=== PATIENT | female | born 1990 | race Caucasian/White ===

== ENCOUNTER → 2019-11-20 10:55 | Outpatient (BNVA) | payer OTHER, SELFPAY | PROVIDERS: PCP Internal Medicine; Visit Provider Orthopaedic Surgery | DX: S83.241D Other tear of medial meniscus, current injury, right knee, subsequent encounter (principal) | CPT/HCPCS: 99214 ==

== ENCOUNTER 2019-11-22 06:33 | Day surgery (SDC) | payer OTHER, SELFPAY ==
[2019-11-20 19:47] VITALS: BMI 24.0
--- NOTE | 2019-11-21 12:10 | P.CONAN_ITS ---
Documented by User: Kelley Kirby 11/21/19 12:12 HPI - Anesthesia Eval Consult details Narrative: 29yo F for R knee arthroscopy s/p R knee scope 09/2018 with GA-LMA 4 PMFSH Past Medical History Medical History Asthma History of disruption of medial collateral ligament History of renal calculi Hypercalciuria Hypocitraturia Melanoma in situ Osteoarthritis of right knee Family History Family History Mother No problems noted. Father No problems noted. Son No problems noted. Sister No problems noted. Brother No problems noted. 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 Meds Allergies Allergy/AdvReac Type Severity Reaction Status Date / Time sulfamethoxazole Allergy Intermediate HIVES Verified 11/20/19 10:58 [From Bactrim] trimethoprim [From Bactrim] Allergy Intermediate HIVES Verified 11/20/19 10:58 Sulfa (Sulfonamide Allergy Unknown hives Verified 11/20/19 10:58 Antibiotics) Home Medications Medication Instructions Recorded Confirmed Type norethindrone (contraceptive) 0.35 0.35 mg PO DAILY 11/07/19 11/22/19 History mg tablet tramadol 50 mg tablet 50 mg PO Q6H PRN 11/07/19 11/20/19 History zolpidem 10 mg tablet 10 mg PO BEDTIME PRN 11/07/19 11/20/19 History lorazepam 0.5 mg tablet 0.5 mg PO BEDTIME PRN 11/20/19 11/20/19 History Exam Exam Date and Time: November 21, 2019 1210 Height,Weight and Vital Signs: Height 5 ft 4 in Weight 63.503 kg Assessment and Plan Assessment Anesthesia Assessment: Chart Reviewed Documented by User: Maci Isaacs 11/22/19 08:14 [facility] Past Medical History Medical History Asthma History of disruption of medial collateral ligament History of renal calculi Hypercalciuria Hypocitraturia Melanoma in situ Osteoarthritis of right knee Family History Family History Mother No problems noted. Father No problems noted. Son No problems noted. Sister No problems noted. Brother No problems noted. 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 Meds Allergies Allergy/AdvReac Type Severity Reaction Status Date / Time sulfamethoxazole Allergy Intermediate HIVES Verified 11/20/19 10:58 [From Bactrim] trimethoprim [From Bactrim] Allergy Intermediate HIVES Verified 11/20/19 10:58 Sulfa (Sulfonamide Allergy Unknown hives Verified 11/20/19 10:58 Antibiotics) Home Medications Medication Instructions Recorded Confirmed Type norethindrone (contraceptive) 0.35 0.35 mg PO DAILY 11/07/19 11/22/19 History mg tablet tramadol 50 mg tablet 50 mg PO Q6H PRN 11/07/19 11/20/19 History zolpidem 10 mg tablet 10 mg PO BEDTIME PRN 11/07/19 11/20/19 History lorazepam 0.5 mg tablet 0.5 mg PO BEDTIME PRN 11/20/19 11/20/19 History Exam Height,Weight and Vital Signs: Vital Signs Temp Pulse Resp BP Pulse Ox 11/22/19 07:24 98.7 F 61 20 109/76 100 Airway Mallampati Class: I TM Dist: >3cm Neck ROM: Full Loose/Missing/Broken Teeth: No Heart: RRR Lungs: CTAB Assessment and Plan Assessment Anesthesia Assessment: Anesthesia Plan Discussed and Chart Reviewed Final Anesthetic Review NPO: Yes (Sip of water with meds 6am) ASA Class: II Final Preanesthetic Review: No Changes in Pt Med Stat, Meds/Allgs Chart Reviewed, Consent Obtained/Reviewed and Anes Risks/Benef Reviewed Patient Risk: Low Procedure Risk: Low Anesthetic Plan Anesthetic Plan: GA Disposition: Standard PACU
[2019-11-22 07:05] LABS: UPreg QC Valid YES
--- NOTE | 2019-11-22 07:06 | MHC.SHP ---
Pre-Procedural Eval Section A The patient is an INPATIENT: No Changes since office visit: No Cold of Flu in the past 2 weeks, No New Medical Problems, No Changes in Medication and No Patient answered all questions The History & Physical has been completed within 30 days and I have reviewed it.: Yes Section B Chief Complaint: medial meniscus tear with arthritis Allergies: Allergies Allergy/AdvReac Type Severity Reaction Status Date / Time sulfamethoxazole Allergy Intermediate HIVES Verified 11/20/19 10:58 [From Bactrim] trimethoprim [From Bactrim] Allergy Intermediate HIVES Verified 11/20/19 10:58 Sulfa (Sulfonamide Allergy Unknown hives Verified 11/20/19 10:58 Antibiotics) Plan Patient has been examined and remains a candidate for the planned procedure
[2019-11-22 07:08] LABS: Urine Pregnancy NEGATIVE (NEGATIVE)
[2019-11-22 07:24] VITALS: BP 109/76; PULSE 61; RESP 20; TEMP 37.1; O2SAT 100
[2019-11-22] MEDS: Lactated Ringers 1,000 ML 100 ML IVCONT (07:40)
[2019-11-22 09:20] VITALS: BP 95/52; PULSE 56; RESP 12; TEMP 36.2; O2SAT 100
[2019-11-22 09:25] VITALS: BP 93/53; PULSE 69; RESP 16; O2SAT 97
[2019-11-22 09:30] VITALS: BP 101/65; PULSE 80; RESP 18; O2SAT 100
[2019-11-22 09:35] VITALS: BP 109/63; PULSE 68; RESP 18; O2SAT 99
--- NOTE | 2019-11-22 09:36 | PM.PRCOR ---
Brief Operative Note Date of procedure: 11/22/19 Pre-op diagnosis: medial lateral meniscal tear with osteoarthritis right knee Post-op diagnosis: other ( lateral meniscal tear with osteoarthritis lateral compartment right knee) Procedure: arthroscopic surgery right knee with partial lateral meniscectomy and debridement lateral compartment right knee Anesthesia: GLMA Surgeon: Landry Salinas Estimated blood loss (mL): 0 Pathology: none sent Condition: stable Disposition: PACU
[2019-11-22 09:53] VITALS: BP 110/63; PULSE 54; RESP 18; TEMP 36.1; O2SAT 98
--- NOTE | 2019-11-22 10:09 | HO.POSTANES ---
Post Anesthesia Evaluation Post Anesthesia Evaluation Vital Signs: Vital Signs Temp Pulse Resp BP Pulse Ox 11/22/19 09:53 97 F 54 18 110/63 98 11/22/19 09:35 68 18 109/63 99 11/22/19 09:30 80 18 101/65 100 11/22/19 09:25 69 16 93/53 L 97 11/22/19 09:20 97.2 F 56 12 95/52 L 100 11/22/19 07:24 98.7 F 61 20 109/76 100 Anesthesia: General LMA Mental Status: Awake Pain Control: Satisfactory Nausea/Vomiting: None Hydration: Adequate Anesthesia-Related Issues: No Anes. Related Issues
--- NOTE | 2019-11-26 11:52 | OP_ITS ---
SURGEON: Landry Salinas MD PREOPERATIVE DIAGNOSIS: Medial and partial lateral meniscal tear with osteoarthritis, right knee. POSTOPERATIVE DIAGNOSIS: PROCEDURE PERFORMED: 1. Partial lateral meniscectomy, right knee. 2. Debridement of lateral compartment, right knee. ESTIMATED BLOOD LOSS: COMPLICATIONS: ANESTHESIA: ASSISTANTS: SPECIMENS: POSTOPERATIVE DIAGNOSES: 1. Lateral meniscal tear, right knee. 2. Osteoarthritis, lateral compartment, right knee. CLINICAL NOTE: This lady has ongoing problems with pain and discomfort involving her knee and has had multiple surgeries of the knee and she has returned with acute pain and difficulty doing activities. She had failed nonoperative management. Therefore, after explaining the risks, benefits, and alternatives and answering all her questions, it was mutually agreed upon to carry out the following procedure. MOTION: Full range of motion. STABILITY: Cruciate and collateral ligaments intact. DESCRIPTION OF PROCEDURE: PREPARATION: GA, standard technique, tourniquet to 300 mmHg for 12 minutes. SURGICAL TIME-OUT: The patient was identified, procedure confirmed, site confirmed. Medical analogy and history were reviewed. No preoperative antibiotics. No DVT prophylaxis. All other items were discussed and agreed upon. INCISIONS: Superolateral, inferolateral, inferomedial, stab incisions. SYNOVIUM: Normal. SYNOVIAL FLUID: Clear. MEDIAL COMPARTMENT: The medial meniscus tibial and femoral articular surfaces was stable and intact. INTERCONDYLAR NOTCH: ACL from previous resection still intact. PCL intact. LATERAL COMPARTMENT: There were some complex degenerative tearing of the junction of the posterior horn and middle horn of the lateral meniscus were resected using handheld cutters and power shaver. The area of [id number] lateral compartment osteoarthritis of the tibial surface was increased from previously with loose articular cartilage, which was debrided. The small area of grade 3 injury to the weightbearing surface of the lateral femoral condyle, popliteus tendon intact. ANTERIOR COMPARTMENT: There was grade 3 injury of the femoral sulcus. Grade 2 softening of the patella. CLOSURE: 30 mL of a combination of 0.75% Marcaine with epinephrine mixed half and half with normal saline was injected into knee. Steri-Strips and sterile dressing were then applied. RECOMMENDATIONS: 1. Restore motion strength. 2. Resume activity as tolerated. 3. Discharge today with prescription for Tylenol No. 3, 20 tablets. 4. Follow up in the office in 10 days' time. MD GIANLUCA GarzaI/CATHERINE / [id number]
== END 2019-11-22 10:14 | disposition home or self-care (01) ==
PROVIDERS: Nurse Practitioner; PCP Internal Medicine; Visit Provider Orthopaedic Surgery
PROC: (CPT 29870; principal; 2019-11-22 08:20)
DX: S83.271A Complex tear of lateral meniscus, current injury, right knee, initial encounter (principal); M17.11 Unilateral primary osteoarthritis, right knee; X58.XXXA Exposure to other specified factors, initial encounter; Y93.9 Activity, unspecified; Y92.9 Unspecified place or not applicable; Y99.8 Other external cause status; J45.909 Unspecified asthma, uncomplicated; R82.994 Hypercalciuria; R82.991 Hypocitraturia; Z79.899 Other long term (current) drug therapy; Z88.2 Allergy status to sulfonamides; Z86.006 Personal history of melanoma in-situ
CPT/HCPCS: 29881; 81025; J0171; J1100; J1885; J2250; J2405; J3010

== ENCOUNTER → 2019-12-04 13:14 | Outpatient (BNVA) | payer OTHER, SELFPAY | PROVIDERS: Visit Provider Physician Assistant | DX: S83.281A Other tear of lateral meniscus, current injury, right knee, initial encounter (principal); M17.11 Unilateral primary osteoarthritis, right knee | CPT/HCPCS: 29880; 99212 ==

== ENCOUNTER 2020-09-01 19:19 | Outpatient (REF) | payer OTHER, SELFPAY ==
--- NOTE | ~2020-09-01 | MR_ITS ---
EXAMINATION: MRI ANKLE WITHOUT CONTRAST, RIGHT CLINICAL INFORMATION: Lateral ankle pain and swelling following a twisting injury. COMPARISON: None TECHNIQUE: Multisequential MR imaging of the right ankle was obtained without contrast on a high-field strength scanner. FINDINGS: BONE AND ARTICULAR CARTILAGE: Prominent focal marrow edema within the posterior aspect of the lateral tibial plafond, consistent with an osseous contusion. Additional marrow edema along the posterior aspect of the medial malleolus, consistent with an osseous contusion. No associated fracture line. No dislocation. The ankle mortise is maintained. Intact articular cartilage. No talar osteochondral lesion. ACHILLES TENDON: Normal. OTHER TENDONS: Prominent fluid within the posterior tibialis tendon sheath, consistent with tenosynovitis. No measurable tendon defect. LIGAMENTS: Increased signal and attenuation of the posterior tibiofibular ligament, consistent with a mild sprain/partial tear. Absence of the anterior talofibular ligament, consistent with a complete tear. Adjacent soft tissue edema. Edema throughout the deltoid ligament, consistent with a sprain/partial tear. JOINT FLUID AND SOFT TISSUES: Moderate tibiotalar and small posterior subtalar joint effusions. Lateral subcutaneous edema. More mild medial subcutaneous edema. PLANTAR FASCIA: Normal. SINUS TARSI AND TARSAL TUNNEL: Normal. MR/MR ankle RT wo con IMPRESSION: 1. Complete tear of the anterior talofibular ligament. More mild sprain/partial tears of the posterior tibiofibular ligament and deltoid ligament. 2. Osseous contusions at the posterior aspect of the lateral tibial plafond as well as at the posterior aspect of the medial malleolus. No associated fracture line. 3. Moderate tibiotalar and small posterior subtalar joint effusions. Medial and lateral subcutaneous edema. 4. Prominent posterior tibialis tenosynovitis without a measurable tendon defect.
== END 2020-09-01 19:20 | disposition home or self-care (01) ==
LOC: HO.MRI 19:19
PROVIDERS: PCP Internal Medicine; Visit Provider Physician Assistant
DX: S99.911A Unspecified injury of right ankle, initial encounter (principal)
CPT/HCPCS: 73721

== ENCOUNTER 2020-09-17 08:32 | Outpatient (REF) | payer OTHER, SELFPAY ==
--- NOTE | ~2020-09-17 | XR_ITS ---
EXAMINATION: XR ANKLE, RIGHT CLINICAL INFORMATION: Right ankle pain. COMPARISON: None TECHNIQUE: AP, lateral, and mortise views of the right ankle. FINDINGS: There is mild right lateral ankle soft tissue swelling. The ankle mortise and subtalar joints are normal. No visible acute fracture, dislocation or lytic process seen. XR/XR ankle RT min 3V IMPRESSION: Mild lateral malleolar soft tissue swelling. No visible acute fracture or dislocation seen.
== END 2020-09-17 08:33 | disposition home or self-care (01) ==
LOC: HO.HOSX 08:32
PROVIDERS: Visit Provider Orthopaedic Surgery
DX: S93.491D Sprain of other ligament of right ankle, subsequent encounter (principal)
CPT/HCPCS: 73610

== ENCOUNTER 2020-10-09 14:08 | Outpatient (REF) | payer OTHER, SELFPAY ==
[2020-10-09 14:52] LABS: Influenza A PCR NEGATIVE (Negative); Influenza B PCR NEGATIVE (Negative); Resp Syncy Virus RNA Qual PCR NEGATIVE (Negative); SARS COV2 PCR INHOUSE POSITIVE (Negative)
== END 2020-10-09 14:09 | disposition home or self-care (01) ==
LOC: HO.LNP 14:08
PROVIDERS: Visit Provider Family Medicine
DX: Z20.822 Contact with and (suspected) exposure to COVID-19 (principal); B34.9 Viral infection, unspecified
CPT/HCPCS: 0241U

== ENCOUNTER 2020-10-24 14:43 | Outpatient (REF) | payer OTHER, SELFPAY ==
--- NOTE | ~2020-10-24 | XR_ITS ---
EXAMINATION: XR CHEST CLINICAL INFORMATION: Cough. COMPARISON: Most recent CTA chest dated 10/14/2016. Concurrent CTA chest. TECHNIQUE: 2 views of the chest were obtained. FINDINGS: The lungs are clear. The cardiomediastinal silhouette is normal in size. There is no pleural effusion or pneumothorax. No acute osseous abnormality. XR/XR chest 2V IMPRESSION: No acute cardiopulmonary findings.
[2020-10-24 15:08] LABS: D Dimer 938 NG/ML
== END 2020-10-24 14:44 | disposition home or self-care (01) ==
LOC: HO.LAB 14:43
PROVIDERS: PCP Internal Medicine; Visit Provider Physician Assistant
DX: R05 Cough (principal); R06.00 Dyspnea, unspecified
CPT/HCPCS: 36415; 71046; 85379

== ENCOUNTER 2020-10-24 17:00 | Emergency (ER) | payer OTHER, SELFPAY ==
--- NOTE | ~2020-10-24 | CT_ITS ---
EXAMINATION: CT ANGIOGRAM OF THE CHEST WITH AND WITHOUT CONTRAST (CT PULMONARY ANGIOGRAM FOR PE) CLINICAL INFORMATION: elevated d dimer, hx of Covid and sob COMPARISON: Chest x-ray October 24, 2020. CT angiography chest October 14, 2016 TECHNIQUE: Prior to contrast administration, noncontrast localization images were obtained. Subsequently, multidetector volumetric imaging was performed from the thoracic inlet to below the diaphragms following the administration of 75 mL Omnipaque 350 intravenous contrast. No contrast reaction reported Sagittal, coronal, and MIP oblique sagittal reformatted images were obtained on the CT workstation, uploaded to PACS, and reviewed. This CT examination was performed using dose optimization techniques as appropriate, variously including the following: *Automated exposure control *Adjustment of mA and/or kV according to patient size (this includes techniques or standardized protocols for targeted exams where dose is matched to indication/reason for exam; i.e. extremities or head) *Use of iterative reconstruction technique Total exam dose-length product 242 mGy-cm FINDINGS: QUALITY OF STUDY/CONTRAST BOLUS: Satisfactory. PULMONARY ARTERIES: No central or segmental pulmonary emboli. THORACIC AORTA: No aneurysm or dissection. LUNG: No focal consolidation, nodules or masses. PLEURA: No pleural effusion or pneumothorax. MEDIASTINUM: Normal heart size. No pericardial effusion. No hilar or mediastinal lymphadenopathy. No evidence of septal bowing or right heart strain. CHEST WALL/AXILLA: No axillary or internal mammary lymphadenopathy. OSSEOUS STRUCTURES: No acute or suspicious osseous abnormality. UPPER ABDOMEN: Unremarkable. No reflux of contrast into the hepatic veins to suggest elevated right heart pressures. CT/CT angio chest PE protocol IMPRESSION: Normal CT of chest. No evidence of pulmonary embolism. VTE: negative
[2020-10-24 18:45] VITALS: BP 126/78; PULSE 75; RESP 18; TEMP 36.4; O2SAT 100; BMI 24.0
[2020-10-24 20:29] LABS: MANUAL DIFF FLAG NO
[2020-10-24 20:32] LABS: UPreg QC Valid YES; Urine Pregnancy NEGATIVE (NEGATIVE)
[2020-10-24 20:33] LABS: Basophils Percent Auto 0.5 % (0-2); Eosinophils Absolute Auto 0.1 X10*3/uL (0.0-0.4); Hematocrit 36.5 % (37-47); Hemoglobin 12.6 g/dl (12.0-16.0); Imm Gran Abs Auto 0.01 X10*3/uL (0.00-0.03); Imm Gran Pct Auto 0.2 % (0.0-0.4); Lymphocytes Absolute Auto 1.7 X10*3/uL (1.2-4.9); Lymphocytes Percent Auto 28.1 % (20-40); Mean Corpuscular HGB Conc 34.5 g/dl (31.0-35.0); Mean Corpuscular Hemoglobin 32.5 pg (27.0-33.0); Mean Corpuscular Volume 94.1 fL (80-98); Monocytes Absolute Auto 0.6 X10*3/uL (0.1-1.2); Monocytes Percent Auto 9.3 % (2-11); Neutrophils Absolute Auto 3.7 X10*3/uL (2.0-8.3); Neutrophils Percent Auto 60.9 % (45-73); Platelet Count 211 X10*3/uL (160-400); Red Blood Count 3.88 X10*6/uL (4.20-5.50); Red Cell Distribution Width 11.7 % (11.0-16.0)
[2020-10-24 20:43] LABS: COVID-19 Test Negative (Negative)
[2020-10-24 20:50] LABS: Anion Gap 13 (12-20); Blood Urea Nitrogen 11 mg/dL (9-16); Calcium 9.7 mg/dL (8.4-10.2); Carbon Dioxide 25 mmol/L (22-29); Chloride 106 mmol/L (96-108); Estimated Glomerular Filt Rate > 60; Glucose Random 118 mg/dL (60-115); Potassium 3.9 mmol/L (3.3-5.1); Sodium 140 mmol/L (135-145)
[2020-10-24] MEDS: iohexoL 350 MG/ML 100 ML INFUS..BTL IV (21:13)
--- NOTE | 2020-10-24 21:56 | ED.RECABL ---
HPI - Recheck/Abnormal Lab/Rx General Chief Complaint: Recheck/Abnormal Lab/Rx Stated Complaint: abnormal labs Time Seen by Provider: 10/24/20 17:18 Source: patient Mode of arrival: ambulatory Limitations: no limitations History of Present Illness HPI narrative: Patient is a 30-year-old female with a past medical history of asthma and taking OCPs who tested positive for COVID on October 08 and is still symptomatic today. She states she feels shaky, like an elephant is sitting on her chest, she feels short of breath and has a dry cough. She went to her doctor's today and they tested her D-dimer which was elevated at 930 H so she was told to come to the emergency department for a CTA. She states she is fully vaccinated with during a COVID vaccination with her 2nd shot being on 04/02/2020. She denies any fevers, nausea, vomiting or diarrhea. Related Data Home Medications Medication Instructions Recorded Confirmed norethindrone (contraceptive) 0.35 0.35 mg PO DAILY 11/07/19 11/22/19 mg tablet tramadol 50 mg tablet 50 mg PO Q6H PRN 11/07/19 11/20/19 zolpidem 10 mg tablet (Ambien) 10 mg PO BEDTIME PRN 11/07/19 11/20/19 lorazepam 0.5 mg tablet 0.5 mg PO BEDTIME PRN 11/20/19 11/20/19 Previous Rx's Medication Instructions Recorded prednisone 50 mg tablet 50 mg PO DAILY #5 tab 10/24/20 Allergies Allergy/AdvReac Type Severity Reaction Status Date / Time adhesive Allergy Intermediate blisters Verified 10/09/20 10:21 sulfamethoxazole Allergy Intermediate HIVES Verified 09/17/20 09:42 [From Bactrim] Review of Systems Review of Systems: Yes all other systems are reviewed and are negative [facility] Past Medical History Medical History Asthma History of disruption of medial collateral ligament History of renal calculi Hypercalciuria Hypocitraturia Melanoma in situ Osteoarthritis of right knee Surgical History History of arthroscopy of right knee History of cystoscopy History of repair of ACL Family History Family History Mother No problems noted. Father No problems noted. Son No problems noted. Sister No problems noted. Brother No problems noted. 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 Physical Exam Vital Signs: Vital Signs: Last Vital Signs Temp 98.3 F 10/24/20 22:00 Pulse 69 10/24/20 22:00 Resp 18 10/24/20 22:00 BP 110/70 10/24/20 22:00 Pulse Ox 97 10/24/20 22:00 Body Mass Index 24.0 Const: General: cooperative, healthy appearing, comfortable, no acute distress and well developed Orientation/consciousness: patient oriented x3 Limitations: no limitations HENMT: Head: Yes normal to inspection Eyes: General: appearance normal, both eyes and all related structures Neck: Neck: Yes normal visual inspection and Yes full ROM Resp: Effort & Inspection: normal respiratory effort and able to speak in complete sentences Auscultation: clear to auscultation bilaterally Cardio: Rate: regular rate Rhythm: regular rhythm Heart sounds: normal S1 and S2 Skin: General skin exam: no rashes or lesions noted Neuro: General: patient oriented x3 Extrem: General: Yes normal to inspection Course Course Course Narrative: Patient is a 30-year-old female with a past medical history of asthma and taking OCPs who tested positive for COVID on October 08 and is still symptomatic today. Patient had elevated D-dimer so her doctor told to come to the emergency department for CT scan. Vital signs are stable, patient is well-appearing, physical exam is unremarkable. Will get labs and CTA. Reevaluation(s) Reevaluation #1: Labs are all within normal limits, patient is COVID negative today and CTA is negative for clot. Will discharge. MDM - Recheck/Abnormal Lab/Rx Lab Data Result diagrams: 10/24/20 20:22 10/24/20 20:22 Labs: Lab Results 10/24/20 10/24/20 10/24/20 Range/Units 20:17 20:17 20:22 WBC 6.0 (4.8-10.8) X10*3/uL RBC 3.88 L (4.20-5.50) X10*6/uL Hgb 12.6 (12.0-16.0) g/dl Hct 36.5 L (37-47) % MCV 94.1 (80-98) fL MCH 32.5 (27.0-33.0) pg MCHC 34.5 (31.0-35.0) g/dl RDW 11.7 (11.0-16.0) % Plt Count 211 (160-400) X10*3/uL MPV 10.0 (9.4-12.3) fL Immature Gran % (Auto) 0.2 (0.0-0.4) % Neut % (Auto) 60.9 (45-73) % Lymph % (Auto) 28.1 (20-40) % [place] % (Auto) 9.3 (2-11) % Eos % (Auto) 1.0 (0-4) % Baso % (Auto) 0.5 (0-2) % Lymph # (Auto) 1.7 (1.2-4.9) X10*3/uL [place] # (Auto) 0.6 (0.1-1.2) X10*3/uL Eos # (Auto) 0.1 (0.0-0.4) X10*3/uL Baso # (Auto) 0.0 (0.0-0.2) X10*3/uL Abs Immat Gran (auto) 0.01 (0.00-0.03) X10*3/uL Absolute Neuts (auto) 3.7 (2.0-8.3) X10*3/uL Absolute Nucleated RBC 0.000 (0.0-0.012) X10*3/uL Nucleated RBC % (auto) 0.0 (0.0-0.2) /100WBC Sodium (135-145) mmol/L Potassium (3.3-5.1) mmol/L Chloride (96-108) mmol/L Carbon Dioxide (22-29) mmol/L Anion Gap (12-20) BUN (9-16) mg/dL Creatinine (0.5-1.4) mg/dL Estim Creat Clear Calc Estimated GFR Random Glucose (60-115) mg/dL Calcium (8.4-10.2) mg/dL Urine Test NEGATIVE (NEGATIVE) COVID-19 (MICHAEL) Negative (Negative) COVID-19 Clin Com See Note 10/24/20 Range/Units 20:22 WBC (4.8-10.8) X10*3/uL RBC (4.20-5.50) X10*6/uL Hgb (12.0-16.0) g/dl Hct (37-47) % MCV (80-98) fL MCH (27.0-33.0) pg MCHC (31.0-35.0) g/dl RDW (11.0-16.0) % Plt Count (160-400) X10*3/uL MPV (9.4-12.3) fL Immature Gran % (Auto) (0.0-0.4) % Neut % (Auto) (45-73) % Lymph % (Auto) (20-40) % [place] % (Auto) (2-11) % Eos % (Auto) (0-4) % Baso % (Auto) (0-2) % Lymph # (Auto) (1.2-4.9) X10*3/uL [place] # (Auto) (0.1-1.2) X10*3/uL Eos # (Auto) (0.0-0.4) X10*3/uL Baso # (Auto) (0.0-0.2) X10*3/uL Abs Immat Gran (auto) (0.00-0.03) X10*3/uL Absolute Neuts (auto) (2.0-8.3) X10*3/uL Absolute Nucleated RBC (0.0-0.012) X10*3/uL Nucleated RBC % (auto) (0.0-0.2) /100WBC Sodium 140 (135-145) mmol/L Potassium 3.9 (3.3-5.1) mmol/L Chloride 106 (96-108) mmol/L Carbon Dioxide 25 (22-29) mmol/L Anion Gap 13 (12-20) BUN 11 (9-16) mg/dL Creatinine 0.84 (0.5-1.4) mg/dL Estim Creat Clear Calc 83.0 Estimated GFR > 60 Random Glucose 118 H (60-115) mg/dL Calcium 9.7 (8.4-10.2) mg/dL Urine Test (NEGATIVE) COVID-19 (MICHAEL) (Negative) COVID-19 Clin Com Discharge Plan Discharge Clinical Impression: COVID-19 Patient Disposition: Home, Self-Care Instructions: COVID-19 (Coronavirus Disease 2019) (ED) Additional Instructions: Please continue symptomatic care at home. I will give you prescription for prednisone to help with your breathing, if he gets worse or you become more short of breath, please return to the emergency department. Prescriptions: New prednisone 50 mg tablet 50 mg PO DAILY Qty: 5 RF: 0 Interventions: ED Discharge Assessment Last Done: 10/24/20 22:39 Discharge Date/Time: 10/24/20 22:40
[2020-10-24 22:00] VITALS: BP 110/70; PULSE 69; RESP 18; TEMP 36.8; O2SAT 97
== END 2020-10-24 22:40 | disposition home or self-care (01) ==
PROVIDERS: Physician Assistant; Emergency Provider Internal Medicine; PCP Internal Medicine
DX: U07.1 COVID-19 (principal); R79.89 Other specified abnormal findings of blood chemistry; Z79.899 Other long term (current) drug therapy
CPT/HCPCS: 36415; 71275; 80048; 81025; 85025; 87635; 99284; Q9967

== ENCOUNTER 2022-01-14 07:00 | Outpatient (REF) | payer OTHER, SELFPAY ==
--- NOTE | ~2022-01-14 | XR_ITS ---
EXAMINATION: XR KNEE AP, BILATERAL XR KNEE, RIGHT CLINICAL INFORMATION: Pain. COMPARISON: None TECHNIQUE: AP bilateral knee 1 view. Right knee 2 views FINDINGS: AP BILATERAL KNEE: There is reduction in the medial compartment of both knees and lateral compartment right knee. No bony erosive changes seen. There is mild periarticular spurring in the medial compartment right knee. RIGHT KNEE: There is mild suprapatellar joint effusion. The patellofemoral compartment joint spaces are preserved. No loose bodies, acute fracture or dislocation seen. XR/XR knee RT 2V IMPRESSION: 1. Mild degenerative changes the medial and lateral compartments of the right knee and medial compartment of the left knee. 2. Mild suprapatellar joint effusion, right knee. Normal patellofemoral joint space without loose bodies or bony erosive changes.
--- NOTE | ~2022-01-14 | XR_ITS ---
EXAMINATION: XR KNEE AP, BILATERAL XR KNEE, RIGHT CLINICAL INFORMATION: Pain. COMPARISON: None TECHNIQUE: AP bilateral knee 1 view. Right knee 2 views FINDINGS: AP BILATERAL KNEE: There is reduction in the medial compartment of both knees and lateral compartment right knee. No bony erosive changes seen. There is mild periarticular spurring in the medial compartment right knee. RIGHT KNEE: There is mild suprapatellar joint effusion. The patellofemoral compartment joint spaces are preserved. No loose bodies, acute fracture or dislocation seen. XR/XR knee standing BI IMPRESSION: 1. Mild degenerative changes the medial and lateral compartments of the right knee and medial compartment of the left knee. 2. Mild suprapatellar joint effusion, right knee. Normal patellofemoral joint space without loose bodies or bony erosive changes.
== END 2022-01-14 07:01 | disposition home or self-care (01) ==
LOC: HO.HOSX 07:00
PROVIDERS: Visit Provider Physician Assistant
DX: M17.11 Unilateral primary osteoarthritis, right knee (principal)
CPT/HCPCS: 20610; 73560; 73565; J1040

== ENCOUNTER 2022-03-20 09:49 | Outpatient (REF) | payer OTHER, SELFPAY ==
--- NOTE | ~2022-03-20 | XR_ITS ---
EXAMINATION: XR ELBOW, RIGHT CLINICAL INFORMATION: Pain COMPARISON: None TECHNIQUE: AP, lateral, and oblique views of the right elbow. FINDINGS: The bones and soft tissues are normal. No fracture or joint effusion. Alignment is anatomic. Joint spaces are maintained. XR/XR elbow RT 2V IMPRESSION: Normal right elbow.
[2022-03-20 10:23] LABS: MANUAL DIFF FLAG NO
[2022-03-20 11:22] LABS: Basophils Percent Auto 0.7 % (0-2); Eosinophils Absolute Auto 0.1 X10*3/uL (0.0-0.4); Eosinophils Percent Auto 1.1 % (0-4); Hematocrit 38.4 % (37.0-47.0); Hemoglobin 12.9 g/dl (12.0-16.0); Imm Gran Abs Auto 0.02 X10*3/uL (0.00-0.03); Imm Gran Pct Auto 0.4 % (0.0-0.4); Lymphocytes Absolute Auto 1.4 X10*3/uL (1.2-4.9); Lymphocytes Percent Auto 31.7 % (20-40); Mean Corpuscular HGB Conc 33.6 g/dl (31.0-35.0); Mean Corpuscular Hemoglobin 31.5 pg (27.0-33.0); Mean Corpuscular Volume 93.9 fL (80.0-98.0); Mean Platelet Volume 10.1 fL (9.4-12.3); Monocytes Absolute Auto 0.4 X10*3/uL (0.1-1.2); Neutrophils Absolute Auto 2.5 x10*3/uL (2.0-8.3); Neutrophils Percent Auto 57.1 % (45-73); Platelet Count 229 X10*3/uL (160-400); Red Blood Count 4.09 X10*6/uL (4.20-5.50); Red Cell Distribution Width 12.2 % (11.0-16.0); White Blood Count 4.5 X10*3/uL (4.8-10.8)
[2022-03-20 11:57] LABS: Alanine Aminotransferase 10 U/L (0-31); Albumin Level 4.4 g/dL (3.5-5.0); Alkaline Phosphatase 79 U/L (39-117); Anion Gap 10 (12-20); Aspartate Amino Transferase 15 U/L (5-31); Bilirubin Total 0.8 mg/dL (0.0-1.0); Blood Urea Nitrogen 11 mg/dL (9-16); Calcium 9.3 mg/dL (8.4-10.2); Carbon Dioxide 27 mmol/L (22-29); Chloride 106 mmol/L (96-108); Cholesterol 178 mg/dL; Estimated Glomerular Filt Rate > 60; Glucose Random 86 mg/dL (60-115); HDL Cholesterol 51 mg/dL; LDL Cholesterol Calculated 114 mg/dl; Potassium 4.1 mmol/L (3.3-5.1); Sodium 139 mmol/L (135-145); Total Protein 6.7 g/dL (6.5-8.0); Triglycerides 68 mg/dL
[2022-03-20 12:12] LABS: Free T4 (Free Thyroxine) 0.99 ng/dL (0.71-1.85); Thyroid Stimulating Hormone 1.08 uIU/mL (0.32-4.0); Vitamin D 25-OH Total 23.6 ng/mL (>30)
== END 2022-03-20 09:50 | disposition home or self-care (01) ==
LOC: HO.LAB 09:49
PROVIDERS: PCP Internal Medicine; Visit Provider Physician Assistant
DX: Z00.00 Encounter for general adult medical examination without abnormal findings (principal); M25.521 Pain in right elbow
CPT/HCPCS: 36415; 73070; 80053; 80061; 82306; 84439; 84443; 85025

== ENCOUNTER 2023-02-11 09:32 | Outpatient (AMB) | payer OTHER, SELFPAY ==
--- NOTE | 2023-02-11 09:38 | MHC.OFFVIS ---
Intake Intake Visit Reasons: iNJ- Rt Knee Pain Intake Note: Faye is a 32 year old female who presents today for a right knee injection. Allergies adhesive Allergy (Intermediate, Verified 11/12/22 11:45) blisters sulfamethoxazole [From Bactrim] Allergy (Intermediate, Verified 11/12/22 11:45) HIVES Sulfa (Sulfonamide Antibiotics) Allergy (Unknown, Verified 11/12/22 11:45) HPI iNJ- Rt Knee Pain HPI Details 32-year-old female who presents in the office today for a cortisone injection in the right knee. I last saw the patient in the office on 01/14/2022 which was her last cortisone injection. [facility] Medical History Asthma History of disruption of medial collateral ligament History of renal calculi Hypercalciuria Hypocitraturia Melanoma in situ Osteoarthritis of right knee Surgical History History of arthroscopy of right knee History of cystoscopy History of repair of ACL Family History Mother No problems noted. Father No problems noted. Son No problems noted. Sister No problems noted. Brother No problems noted. Social History (System 11/12/22 @ 11:45 by Samantha Perez) Alcohol intake: current Comment: PATIENT HAVING KNEE ATHROSCOPY. 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 No ecchymosis, erythema, or joint effusion. No tenderness to palpation to the medial or lateral joint lines. Crepitus felt with ROM. Full knee extension and flexion. NVI. Office Procedures Joint Injection/Drain Joint Injection/Drain Primary Site: right knee Prep: site was prepped using aseptic technique, ethochloride spray was applied and injection warnings given Injected: 80 mg of, DepoMedrol, with 8 mL of (2% plain lido) and in the joint Approach Used: anterolateral Procedure: The patient tolerated the procedure well, but had some pain with the injection and there was some relief with the local anesthesia Coding - Large joint Procedure code (CPT) selection complete Assessment & Plan Assessment & Plan (1) Osteoarthritis of right knee: Code(s): M17.11 - Unilateral primary osteoarthritis, right knee Qualifiers: Osteoarthritis type: unspecified Qualified Code(s): M17.11 - Unilateral primary osteoarthritis, right knee Plan Ms. Lawrence is a 32-year-old female who presents in the office today for a cortisone injection in the right knee. I last saw the patient in the office on 01/14/2022 which was her last cortisone injection. The patient was offered a cortisone injection in the right knee with 80 mg of DepoMedrol. The patient was explained the risk, benefits, and alternatives to receiving this injection. After receiving consent for the injection, the patient had the procedure done while in office today. The patient tolerated the procedure well with no complications. Follow up will be PRN, or sooner if needed. Patient Instructions: Scribed for Viktoria Mariscal PA-C by Franchesca Witt medical liaison, on 02/11/2023 at 9:52 am, EST. Coding Level of Care Code Est Pt Level 3 (63309) Diagnoses Osteoarthritis of right knee, unspecified osteoarthritis type M17.11 Osteoarthritis type: unspecified CPT Codes Coding - 48782 Large joint: 33360 - Large joint ([id number])
== END 2023-02-11 09:53 | disposition home or self-care (01) ==
PROVIDERS: PCP Internal Medicine; Visit Provider Physician Assistant
DX: M17.11 Unilateral primary osteoarthritis, right knee (principal)
CPT/HCPCS: 20610

== ENCOUNTER → 2023-02-11 09:32 | Outpatient (BNVA) | payer OTHER, SELFPAY | PROVIDERS: PCP Internal Medicine; Visit Provider Physician Assistant | DX: M17.11 Unilateral primary osteoarthritis, right knee (principal) | CPT/HCPCS: 20610; J1040 ==

== ENCOUNTER 2024-01-25 15:58 | Emergency (ER) | payer BC, SELFPAY ==
--- NOTE | ~2024-01-25 | CT_ITS ---
EXAMINATION: CT ABDOMEN AND PELVIS WITHOUT CONTRAST CLINICAL INFORMATION: Left flank pain COMPARISON: 12/19/2015 TECHNIQUE: Multidetector volumetric imaging was performed from the superior aspect of the liver through the pubic symphysis. Sagittal and coronal reformatted images were obtained on the technologist's workstation. This CT examination was performed using dose optimization techniques as appropriate, variously including the following: *Automated exposure control *Adjustment of mA and/or kV according to patient size (this includes techniques or standardized protocols for targeted exams where dose is matched to indication/reason for exam; i.e. extremities or head) *Use of iterative reconstruction technique DLP: 461 mGy-cm FINDINGS: LUNG BASES: Unremarkable. ABDOMINAL AND PELVIC WALL: Unremarkable. LIVER AND BILIARY TREE: Unremarkable. GALLBLADDER: Unremarkable. PANCREAS: Unremarkable. SPLEEN: Unremarkable. ADRENAL GLANDS: Unremarkable. KIDNEYS AND URETERS: Punctate nonobstructing bilateral renal stones. No hydronephrosis or nephrolithiasis. GASTROINTESTINAL TRACT: Unremarkable. Appendix is within normal limits. VASCULAR: Unremarkable LYMPH NODES/PERITONEUM: No lymphadenopathy. FREE FLUID: None. BLADDER: Unremarkable. PELVIC VISCERA: Unremarkable. OSSEOUS STRUCTURES: Unremarkable. CT/CT abdomen pelvis wo IV con IMPRESSION: No significant abnormality. Electronically signed by: Mary Grace Zavaleta MD 01/25/2024 07:05 PM NIKOLAI
[2024-01-25 16:05] VITALS: BP 141/87; PULSE 93; RESP 16; TEMP 36.3; O2SAT 100; BMI 24.5
--- NOTE | 2024-01-25 16:07 | ED.GENADULT ---
HPI - General Adult General Chief complaint: Urogenital-Female Stated complaint: ? kidney stone Time Seen by Provider: 01/25/24 18:51 Source: patient Limitations: no limitations History of Present Illness ED Provider: Vanessa felix PA-C HPI narrative: 33-year-old female with a history of kidney stones presents with left flank pain times 1 day. Pain over left mid flank is nonradiating. Associated nausea vomiting. Denies dysuria but states her urine is cloudy and she has been urinating frequently. Patient states she can ?feel her kidney quivering?. Denies fever. Related Data Home Medications ?Medication ?Instructions ?Recorded ?Confirmed norethindrone (contraceptive) 0.35 0.35 mg PO DAILY 11/07/19 11/22/19 mg tablet tramadol 50 mg tablet 50 mg PO Q6H PRN Anxiety 11/07/19 11/20/19 zolpidem 10 mg tablet (Ambien) 10 mg PO BEDTIME PRN Insomnia 11/07/19 11/20/19 lorazepam 0.5 mg tablet 0.5 mg PO BEDTIME PRN Anxiety 11/20/19 11/20/19 Previous Rx's ?Medication ?Instructions ?Recorded prednisone 50 mg tablet 50 mg PO DAILY #5 tabs 10/24/20 ketorolac 10 mg tablet 10 mg PO Q6H PRN pain #20 tabs 01/25/24 Allergies Allergy/AdvReac Type Severity Reaction Status Date / Time adhesive Allergy Intermediate blisters Verified 11/12/22 11:45 sulfamethoxazole Allergy Intermediate HIVES Verified 11/12/22 11:45 [From Bactrim] Sulfa (Sulfonamide Allergy Unknown Hives Verified 01/25/24 16:06 Antibiotics) shellfish derived Allergy Hives Verified 01/25/24 16:06 Review of Systems Review of Systems: Yes all other systems are reviewed and are negative Constitutional: Constitutional: Denies fatigue and Denies fever(s) Cardiovascular: Cardiovascular: Denies chest pain and Denies dyspnea Respiratory: Respiratory: Denies cough and Denies dyspnea Gastrointestinal: Gastrointestinal: Reports abdominal pain, Denies diarrhea, Reports nausea and Reports vomiting Genitourinary: Genitourinary: Denies dysuria Endocrine: Endocrine: Denies fatigue PMFSH Past Medical History Attestation statement: The following information was validated with the patient. Medical History Asthma History of disruption of medial collateral ligament History of renal calculi Hypercalciuria Hypocitraturia Melanoma in situ Osteoarthritis of right knee Surgical History History of arthroscopy of right knee History of cystoscopy History of repair of ACL Family History Family History Mother No problems noted. Father No problems noted. Son No problems noted. Sister No problems noted. Brother No problems noted. Social History Social History (System 11/12/22 @ 11:45 by Samantha Perez) Alcohol intake: current Comment: PATIENT HAVING KNEE ATHROSCOPY. 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 Physical Exam ED Vital Signs: Vital Signs - 24 hr 01/25/24 16:05 Temperature 97.3 F Pulse Rate 93 Respiratory Rate 16 Blood Pressure 141/87 H Pulse Oximetry 100 Oxygen Delivery Method Room Air BMI result Body Mass Index 24.5 Const Other: Alert, well-appearing Orientation/consciousness: patient oriented x3 Resp Other: Nonlabored respiration Cardio Other: Normal peripheral perfusion GI Other: Abdomen is soft, nondistended nontender General: Yes no CVA tenderness Back/Spine/Pelvis Other: Palpable pain within left paraspinous thoracic distribution, no deformity no rash in this area Back: no CVA tenderness Skin Other: Warm dry no rash Neuro General: patient oriented x3, no focal motor deficits and CN's II-XI intact bilaterally Psych Other: Calm cooperative Course Course Course Narrative: RME, this is a rapid medical exam performed by Alex Sloan please refer to primary provider for complete H&P- 33-year-old female presents for evaluation of left flank pain. Her pain started last night. She has a history of kidney stones and reports this feels similar. Plan for labs, urinalysis, CT scan of the abdomen pelvis. Medications Administered Generic Name Dose Route Start Last Admin Trade Name Freq PRN Reason Stop Dose Admin Sodium Chloride 1,000 mls @ 999 mls/hr 01/25/24 19:00 01/25/24 19:07 Ns IV 01/25/24 20:00 999 mls/hr .Q1H1M MINNIE Administration Discontinued Medications Generic Name Dose Route Start Last Admin Trade Name Alec PRN Reason Stop Dose Admin Ketorolac Tromethamine 15 mg 01/25/24 18:58 01/25/24 19:11 Ketorolac Tromethamine 15 Mg/Ml Vial IVPUSH 01/25/24 18:59 15 mg ONCE ONE Administration Ondansetron HCl 4 mg 01/25/24 18:58 01/25/24 19:09 Ondansetron Hcl 4 Mg/2 Ml Vial IVPUSH 01/25/24 18:59 4 mg ONCE ONE Administration Medical Decision Making Medical Decision Making [facility] Narrative: 33-year-old female with a history of kidney stones presents with left flank pain times 1 day. Pain over left mid flank is nonradiating. Associated nausea vomiting. Denies dysuria but states her urine is cloudy and she has been urinating frequently. Patient states she can ?feel her kidney quivering?. Denies fever. Problem: Renal stones History: Per patient I have considered the following differential diagnoses: UTI, pyelonephritis, renal colic Plan: Screening labs including a urinalysis and CT scan were already obtained from triage. We will be giving IV fluids Zofran and Toradol. Doubtful to be pyelo given the patient is afebrile. I have independently reviewed the following tests: Labs: No leukocytosis, not anemic, no electrolyte abnormality, urine not infected no hematuria CT abdomen and pelvis: CT/CT abdomen pelvis wo IV con IMPRESSION: No significant abnormality. Lab Data 01/25/24 16:16 01/25/24 16:16 Labs: Lab Results 01/25/24 01/25/24 Range/Units 16:16 18:57 WBC 6.4 (4.8-10.8) X10*3/uL RBC 3.94 L (4.20-5.50) X10*6/uL Hgb 12.4 (12.0-16.0) g/dl Hct 36.4 L (37.0-47.0) % MCV 92.4 (80.0-98.0) fL MCH 31.5 (27.0-33.0) pg MCHC 34.1 (31.0-35.0) g/dl RDW 12.3 (11.0-16.0) % Plt Count 219 (160-400) X10*3/uL MPV 9.6 (9.4-12.3) fL Immature Gran % (Auto) 0.3 (0.0-0.4) % Neut % (Auto) 56.3 (45-73) % Lymph % (Auto) 33.5 (20-40) % [place] % (Auto) 8.5 (2-11) % Eos % (Auto) 0.9 (0-4) % Baso % (Auto) 0.5 (0-2) % Lymph # (Auto) 2.1 (1.2-4.9) X10*3/uL [place] # (Auto) 0.5 (0.1-1.2) X10*3/uL Eos # (Auto) 0.1 (0.0-0.4) X10*3/uL Baso # (Auto) 0.0 (0.0-0.2) X10*3/uL Abs Immat Gran (auto) 0.02 (0.00-0.03) X10*3/uL Absolute Neuts (auto) 3.6 (2.0-8.3) x10*3/uL Absolute Nucleated RBC 0.000 (0.0-0.012) X10*3/uL Nucleated RBC % (auto) 0.0 (0.0-0.2) /100WBC Sodium 139 (135-145) mmol/L Potassium 3.9 (3.3-5.1) mmol/L Chloride 106 (96-108) mmol/L Carbon Dioxide 23 (22-29) mmol/L Anion Gap 14 (12-20) BUN 10 (9-16) mg/dL Creatinine 0.83 (0.5-1.4) mg/dL Estim Creat Clear Calc 81.7 Estimated GFR > 60 Random Glucose 96 (60-115) mg/dL Calcium 9.3 (8.4-10.2) mg/dL Total Bilirubin 0.4 (0.0-1.0) mg/dL AST 22 (5-31) U/L ALT 17 (0-31) U/L Alkaline Phosphatase 56 (39-117) U/L Total Protein 7.0 (6.5-8.0) g/dL Albumin 4.4 (3.5-5.0) g/dL Lipase 45 (8-78) U/L Beta HCG, Quant < 2 mIU/mL Urine Color Yellow Urine Appearance Clear Urine pH 6.5 (5.0-9.0) Ur Specific [place] 1.010 (1.005-1.025) Urine Protein Negative (Neg-Trace) mg/dL Urine Glucose (UA) Negative (Negative) mg/dL Urine Ketones Negative (Negative) mg/dL Urine Blood Negative (Negative) Urine Nitrite Negative (Negative) Ur Leukocyte Esterase Negative (Negative) Urine RBC 0-2 (0-2) /HPF Urine WBC 0-5 (0-5) /HPF Ur Squamous Epith Cells 0-2 (0-2) /HPF Urine Bacteria None Seen (None Seen) Hyaline Casts 0-2 (0-2) /LPF Discharge Plan Discharge Clinical Impression: Acute thoracic myofascial strain Patient Disposition: Home, Self-Care Instructions: Muscle Strain (ED) Additional Instructions: All of your labs including your urinalysis were normal. The CT scan does not reveal any acute process. Your exam is suggestive of musculoskeletal strain/pain. See home care instructions. Use the ketorolac as needed for your discomfort and follow up with your primary care provider as needed. Prescriptions: New ketorolac 10 mg tablet 10 mg PO Q6H PRN (Reason: pain) Qty: 20 0RF Rx Instructions: maximum total duration of 5 days from all oral, intranasal, or parenteral formulations. The patient received a dose of Toradol here in the emergency department. No Action prednisone 50 mg tablet 50 mg PO DAILY Qty: 5 0RF Print Language: Serbian
[2024-01-25 16:19] LABS: MANUAL DIFF FLAG NO
[2024-01-25 16:25] LABS: Basophils Percent Auto 0.5 % (0-2); Eosinophils Absolute Auto 0.1 X10*3/uL (0.0-0.4); Eosinophils Percent Auto 0.9 % (0-4); Hematocrit 36.4 % (37.0-47.0); Hemoglobin 12.4 g/dl (12.0-16.0); Imm Gran Abs Auto 0.02 X10*3/uL (0.00-0.03); Imm Gran Pct Auto 0.3 % (0.0-0.4); Lymphocytes Absolute Auto 2.1 X10*3/uL (1.2-4.9); Lymphocytes Percent Auto 33.5 % (20-40); Mean Corpuscular HGB Conc 34.1 g/dl (31.0-35.0); Mean Corpuscular Hemoglobin 31.5 pg (27.0-33.0); Mean Corpuscular Volume 92.4 fL (80.0-98.0); Mean Platelet Volume 9.6 fL (9.4-12.3); Monocytes Absolute Auto 0.5 X10*3/uL (0.1-1.2); Monocytes Percent Auto 8.5 % (2-11); Neutrophils Absolute Auto 3.6 x10*3/uL (2.0-8.3); Neutrophils Percent Auto 56.3 % (45-73); Platelet Count 219 X10*3/uL (160-400); Red Blood Count 3.94 X10*6/uL (4.20-5.50); Red Cell Distribution Width 12.3 % (11.0-16.0); White Blood Count 6.4 X10*3/uL (4.8-10.8)
[2024-01-25 16:51] LABS: Albumin Level 4.4 g/dL (3.5-5.0); Anion Gap 14 (12-20); Aspartate Amino Transferase 22 U/L (5-31); Bilirubin Total 0.4 mg/dL (0.0-1.0); Blood Urea Nitrogen 10 mg/dL (9-16); Calcium 9.3 mg/dL (8.4-10.2); Carbon Dioxide 23 mmol/L (22-29); Chloride 106 mmol/L (96-108); Creatinine Clr Calc Pharmacy 81.7; Estimated Glomerular Filt Rate > 60; Glucose Random 96 mg/dL (60-115); HCG Quantitative < 2 mIU/mL; Lipase 45 U/L (8-78); Potassium 3.9 mmol/L (3.3-5.1); Sodium 139 mmol/L (135-145)
[2024-01-25 17:02] LABS: Alanine Aminotransferase 17 U/L (0-31); Alkaline Phosphatase 56 U/L (39-117)
[2024-01-25] MEDS: 0.9 % Sodium Chloride 1,000 ML 999 ML IV (19:07)
[2024-01-25 19:08] LABS: Appearance Urine Clear; Color Urine Yellow; Glucose Urine UA Negative (Negative); Leukocyte Esterase Urine Negative (Negative); Nitrite Urine Negative (Negative); PH 6.5 (5.0-9.0); Urine Blood Negative (Negative); Urine Ketones Negative (Negative); Urine Protein Negative (Neg-Trace)
[2024-01-25] MEDS: ondansetron HCL 4 MG/2 ML VIAL IVPUSH (19:09)
[2024-01-25 19:10] LABS: Bacteria Urine None Seen (None Seen); Hyaline Casts Urine 0-2 /LPF (0-2); RBC Urine 0-2 /HPF (0-2); Squamous Epithelial Cell Urine 0-2 /HPF (0-2); WBC Urine 0-5 /HPF (0-5)
[2024-01-25] MEDS: Ketorolac Tromethamine 15 MG/ML VIAL IVPUSH (19:11)
[2024-01-25 19:58] VITALS: BP 107/60; PULSE 61; RESP 17; TEMP 36.8; O2SAT 100
[2024-01-25 20:55] VITALS: BP 107/60; PULSE 61; RESP 17; TEMP 36.8; O2SAT 100
== END 2024-01-25 20:55 | disposition home or self-care (01) ==
PROVIDERS: Physician Assistant; Emergency Provider Emergency Medicine Emergency Medical Services; PCP Internal Medicine
DX: S29.012A Strain of muscle and tendon of back wall of thorax, initial encounter (principal); R10.2 Pelvic and perineal pain; R11.2 Nausea with vomiting, unspecified; X58.XXXA Exposure to other specified factors, initial encounter; Y93.89 Activity, other specified; Y92.89 Other specified places as the place of occurrence of the external cause; Y99.8 Other external cause status; Z79.899 Other long term (current) drug therapy
CPT/HCPCS: 36415; 74176; 80053; 81001; 83690; 84702; 85025; 96361; 96374; 96375; 99283; 99284; J1885; J2405

== ENCOUNTER 2024-02-17 12:41 | Outpatient (AMB) | payer BC, SELFPAY ==
--- NOTE | 2024-02-17 12:53 | A.OFFVIS_ITS ---
Intake Visit Reasons: OV- Right knee pain, last inj 02/11/23 Intake Note: Faye is a 33 year old female who presents today for a follow up of her right knee OA, last injection 02/11/23. Patient reports she would like to get an injection in her left knee as well if possible, since her last injection gave her relief. Allergies adhesive Allergy (Intermediate, Verified 02/17/24 13:22) blisters sulfamethoxazole [From Bactrim] Allergy (Intermediate, Verified 02/17/24 13:22) HIVES Sulfa (Sulfonamide Antibiotics) Allergy (Unknown, Verified 02/17/24 13:22) Hives shellfish derived Allergy (Verified 02/17/24 13:22) Hives HPI HPI OV- Right knee pain, last inj 02/11/23: Details: Patient presents to the office today for bilateral knee pain. She had a right knee injection on 02/11/2023. She states that this gives her great relief. She is wondering if she may have both knees injected at today's visit. [facility] Medical History Asthma History of disruption of medial collateral ligament History of renal calculi Hypercalciuria Hypocitraturia Melanoma in situ Osteoarthritis of right knee Surgical History History of arthroscopy of right knee History of cystoscopy History of repair of ACL Family History Mother No problems noted. Father No problems noted. Son No problems noted. Sister No problems noted. Brother No problems noted. Social History Alcohol intake: current Comment: PATIENT HAVING KNEE ATHROSCOPY. 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 No ecchymosis, erythema, or joint effusion. No tenderness to palpation to the medial or lateral joint lines. Crepitus felt with ROM. Full knee extension and flexion. NVI. Office Procedures AMB Joint Injection/Aspiration Joint Injection/Aspiration Primary Site: right knee Secondary Site: left knee Prep: site was prepped using aseptic technique, ethochloride spray was applied and injection warnings given Injected: 80 mg of, DepoMedrol, with 8 mL of (2% plain lido ) and in the joint Approach Used: anterolateral Procedure: The patient tolerated the procedure well, but had some pain with the injection and there was some relief with the local anesthesia Coding 82017 - Large joint Procedure code (CPT) selection complete Assessment & Plan Assessment & Plan (1) Tear of medial meniscus of right knee: Code(s): S83.241A - Other tear of medial meniscus, current injury, right knee, initial encounter Category: Medical (2) Osteoarthritis of right knee: Code(s): M17.11 - Unilateral primary osteoarthritis, right knee Category: Medical Qualifiers: Osteoarthritis type: unspecified Qualified Code(s): M17.11 - Unilateral primary osteoarthritis, right knee Plan The patient was offered a cortisone injection in bilateral knees with 80 mg of DepoMedrol. The patient was explained the risks, benefits, and alternatives to receiving this injection. After receiving consent for the injection, the patient had the procedure done while in the office today. The patient tolerated the procedure well with no complications. Follow-up will be p.r.n., or sooner if needed Coding Level of Care Code Est Pt Level 3 (60406) Diagnoses Tear of medial meniscus of right knee S83.241A Osteoarthritis of right knee, unspecified osteoarthritis type M17.11 Osteoarthritis type: unspecified CPT Codes Coding - 61996 Large joint: 43577 - Large joint ([id number])
== END 2024-02-17 13:22 | disposition home or self-care (01) ==
PROVIDERS: PCP Internal Medicine; Visit Provider Physician Assistant
DX: M17.11 Unilateral primary osteoarthritis, right knee (principal); S83.241A Other tear of medial meniscus, current injury, right knee, initial encounter; M25.562 Pain in left knee
CPT/HCPCS: 20610; 99213

== ENCOUNTER → 2024-02-17 12:41 | Outpatient (BNVA) | payer BC, SELFPAY | PROVIDERS: PCP Internal Medicine; Visit Provider Physician Assistant | DX: M17.11 Unilateral primary osteoarthritis, right knee (principal); S83.241A Other tear of medial meniscus, current injury, right knee, initial encounter; M25.562 Pain in left knee | CPT/HCPCS: 20610; J1010; J2003 ==

== ENCOUNTER 2024-10-04 12:33 | Outpatient (REF) | payer BC, SELFPAY ==
--- NOTE | 2024-10-04 | PFT_ITS ---
Flows: FEV1: 117 % of predicted at 3.64 L FVC: 115 % of predicted at 4.31 L FEV1/FVC: 85 % Bronchodilator response: Present in small to medium airways only Volumes: Total lung capacity: 110 % of predicted at 5.75 L Residual volume: 107 % of predicted at 1.33 L Slow vital capacity: 111 % of predicted at 4.42 L Expiratory reserve volume: 108 % of predicted at 1.37 L Diffusion capacity: Normal Impression: No obstructive or restrictive ventilatory defects. Bronchodilator response is present in small to medium airways only. MTDD
--- OUTSIDE RECORDS SUMMARY | 2024-10-04 13:15 | XMS_ITS | Encounter Summary ---
Author Organization [facility] Address [address] [address] Phone Care Team Providers Care Senior Devops Engineer Name Role Phone Karlo Womack DO Primary Care Provider [phone] DiandraKarlo dickson Unavailable Reason for Referral * MRI/CAT Scan - Closed Specialty Diagnoses / Procedures Referred By Cj fraga Referred To Contact Radiology Diagnoses Migraine without status migrainosus, not intractable, unspecified migraine type Procedures MRI Brain CHG MRI BRAIN Elvia Law PA Phone: tel: fax: Referral ID Status Reason Start Date Expiration Date Visits Re quested Visits Authorized [id number] Closed 02/17/2021 08/16/2021 1 1 Encounter Details Date Type Department Care Team (Latest Contact Info) Description 02/17/2021 Transcribe Orders Virtual Department [address] [place] [address] Elvia Law PA [address] [place] [address] [place] [address] Migraine without status migrainosus, not intractable, unspecified migraine type (Primary Dx) Social History Tobacco Use Types Packs/Day Years Used Date Smoking Tobacco: Never Smokeless Tobacco: Never Alcohol Use Standard Drinks/Week Comments Not Currently 0 (1 standard drink = 0.6 oz pur e alcohol) Comments Yes Sex and Gender Information Value Date Recorded Sex Assigned at Female 02/14/2017 9:38 AM EST Legal Sex Female 9:07 PM EDT Gender Identity Female 02/14/2017 9:38 AM EST Sexual Orientation Straight 02/14/2017 9: 38 AM EST 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 Not on file Not on [employer] e Not on file documented as of this encounter Plan of Treatment Upcoming Encounters Date Type Department Care Team (Late st Contact Info) Description 11/30/2024 9:40 AM EDT Office Visit [facility] [address] [place] [address] Kim Cee MD [address] [facility], [address] [place] [address] [email or web address] documented as of this encounter Results * MRI BRAIN WITHOUT CONTRAST (03/09/2021 6:13 PM EST) Anatomical Region Laterality Modality Head Magnetic Resonan ce 03/09/2021 6:17 PM EST Impressions 03/09/2021 6:21 PM EST Normal MRI appearance of the brain POS [id number] Narrative 03/09/2021 6:21 PM EST TECHNIQUE: 1.5 Iris scanner. Nonenhanced exam. No comparison. FINDINGS: No signal changes suggestive of ischemia, infarct, hemorrhage, mass, demyelinating disease or an inflammatory process. Normal ventricular size and configuration. Basilar cisterns widely patent. No pituitary, pineal region, IAC or intraorbital pathology. Normal flow-voids in the major vessels of the [place] and the dural venous sinuses. No inflammatory changes in the paranasal sinuses or mastoids. Procedure Note Augustin Cooney MD - 03/09/2021 TECHNIQUE: 1.5 Iris scanner. Nonenhanced exam. No comparison. FINDINGS: No signal changes suggestive of ischemia, infarct, hemorrhage, mass,demyelinating disease or an inflammatory process. Normal ventricular size and configuration. Basilar cisterns widely patent. No pituitary, pineal region, IAC or intraorbital pathology. Normal flow-voids in the major vessels of the [place] and thedural venous sinuses. No inflammatory changes in the paranasal sinuses or mastoids. 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 It is not the complete legal health record.[facility]
--- OUTSIDE RECORDS SUMMARY | 2024-10-04 13:15 | XMS_ITS | Encounter Summary ---
Author Organization [facility] Address [address] [facility] [address] [place] [address] Phone Care Team Providers Care Machinist Wood Name Role Phone Karlo Womack DO Primary Care Provider [phone] DiandraKarlo dickson DO Unavailable Encounter Details Date Type Department Care Team (Late Contact Info) Description 04/24/2020 Procedure Pass [address] [address] Social History Tobacco Use Types Packs/Day Years Used Date Smoking Tobacco: Never Smokeless Tobacco: Never Alcohol Use Standard Drinks/Week Comments Not Currently 0 (1 standard drink = 0.6 oz pur e alcohol) Comments No Sex and Gender Information Value Date Recorded Sex Assigned at Female 02/14/2017 9:38 AM EST Legal Sex Female 9:07 PM EDT Gender Identity Female 02/14/2017 9:38 AM EST Sexual Orientation Straight 02/14/2017 9: 38 AM EST 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 Not on ibis [employer] Not on file documented as of this encounter Plan of Treatment Upcoming Encounters Date Type Department Care Team (Late st Contact Info) Description 11/30/2024 9:40 AM EDT Office Visit [facility] [address] [place] [address] [place] [address] Kim Cee MD [address] [facility], [address] [place] [address] [email or web address] documented as of this encounter Visit Diagnoses Not on filedocumented in this encounter Additional Health Concerns Infection Onset Date Last Indicated Resolved Time 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 It is not the complete legal health record.[facility]
--- OUTSIDE RECORDS SUMMARY | 2024-10-04 13:15 | XMS_ITS | Encounter Summary ---
Author Organization [facility] Address [address] [facility] [address] [place] [address] Phone Care Team Providers Care Grinding Machine Operator Automatic Name Role Phone Karlo Womack DO Primary Care Provider [phone] DiandraKarlo dickson DO Unavailable Encounter Details Date Type Department Care Team (Late Contact Info) Description 10/15/2021 Procedure Pass [place] Admitting Dept - Virtual Department [address] [place] [address] Social History Tobacco Use Types Packs/Day Years Used Date Smoking Tobacco: Never Smokeless Tobacco: Never Alcohol Use Standard Drinks/Week Comments Never 0 (1 standard drink = 0.6 oz pur e alcohol) Comments No Sex and Gender Information Value Date Recorded Sex Assigned at Female 02/14/2017 9:38 AM EST Legal Sex Female 9:07 PM EDT Gender Identity Female 02/14/2017 9:38 AM EST Sexual Orientation Straight 02/14/2017 9: 38 AM EST 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 Not on ibis e Not on file documented as of this encounter Plan of Treatment Upcoming Encounters Date Type Department Care Team (Late Contact Info) Description 11/30/2024 9:40 AM EDT Office Visit [facility] [address] [place] [address] [place] [address] Kim Cee MD [address] [facility], [address] [place] [address] documented as of this encounter Visit Diagnoses Not on filedocumented in this encounter Care Teams Grinding Machine Operator Automatic Relationship Specialty Start Date End Date Karlo Womack DO PCP - General Internal Medicine 02/13/19 Karlo Womack DO [address] [place] [address] [email or web address] Insurance Assigned Provider 06/18/23 documented as of this encounter Additional Source Comments The information contained in this document represents components of the legal health record. It is not the complete legal health record.[facility]
--- OUTSIDE RECORDS SUMMARY | 2024-10-04 13:15 | XMS_ITS | Encounter Summary ---
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 Not on ibis e Not on file documented as of this encounter Plan of Treatment Upcoming Encounters Date Type Department Care Team (Late st Contact Info) Description 11/30/2024 9:40 AM EDT Office Visit [facility] [address] [place] [address] Kim Cee MD [address] [facility], [address] [place] [address] [email or web address] documented as of this encounter Visit Diagnoses Diagnosis Injury of right ankle, initial encounter- Primary documented in this encounter Additional Health Concerns Infection Onset Date Last Indicated Resolved Time 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 It is not the complete legal health record.[facility]
--- OUTSIDE RECORDS SUMMARY | 2024-10-04 13:15 | XMS_ITS | Encounter Summary ---
Author Organization [facility] Address [address] [employer] [address] [address] Phone Care Team Providers Care Production Cook Name Role Phone Karlo Womack DO Primary Care Provider [phone] DiandraKarlo dickson DO Unavailable Encounter Details Date Type Department Care Team (Late st Contact Info) Description 11/30/2023 Procedure Pass [facility], [address] [address] Social History Tobacco Use Types Packs/Day Years Used Date Smoking Tobacco: Never Smokeless Tobacco: Never Alcohol Use Standard Drinks/Week Comments Yes 7 (1 standard drink = 0.6 oz pur e alcohol) Education Answer Date Recorded Are you interested in more education? Not on ibis e 06/04/2022 Are you concerned about learning? Not on file 06/04/2022 No 06/04/2022 No 06/04/2022 Digital Access Answer Date Recorded No 07/02/2022 No 07/02/2022 Reliable internet access at home? Not on file 07/02/2022 Device with a working camera? Not on file Intimate Partner Violence Answer Date R ecorded Are you denied basic needs s uch as food, clothing, or medical care? No 12/09/2022 In the past 12 months have y ou been in a relationship with a person who hurts, threatens, or tries to control you? No 12/09/2022 Are you denied basic needs s uch as food, clothing, or medical care? No 12/09/2022 In the past 12 months have y ou been in a relationship with a person who hurts, threatens, or tries to control you? 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 Not on ibis e Not on file documented as of this encounter Plan of Treatment Upcoming Encounters Date Type Department Care Team (Late st Contact Info) Description 11/30/2024 9:40 AM EDT Office Visit [facility] [address] [place] [address] Kim Cee MD [address] [address] documented as of this encounter Visit Diagnoses Not on filedocumented in this encounter Care Teams Production Cook Relationship Specialty Start Date End Date Karlo Womack DO [email or web address] PCP - General Internal Medicine 02/13/19 Karlo Womack DO [address] [facility] [place] [address] [email or web address] Insurance Assigned Provider 06/18/23 documented as of this encounter Additional Source Comments The information contained in this document represents components of the legal health record. It is not the complete legal health record.[facility]
--- OUTSIDE RECORDS SUMMARY | 2024-10-04 13:15 | XMS_ITS | Clinical Summary ---
Author Organization [facility] Address [address] [address] Phone Care Team Providers Care Communications Associate Name Role Phone Karlo Womack DO Primary Care Provider [phone] DiandraKarlo dickson DO Unavailable Allergies Active Allergy Reactions Criticality Noted Date Comments Shellfish Containing Products Hives 2020 Sulfa (Sulfonamide Antibiotics) Hives 09/07 Medications albuterol 90 mcg/actuation inhaler Inhale 2 puffs into the lungs every 6 (six) hours as needed for wheezing. Active LORazepam (ATIVAN) 0.5 MG tablet TAKE 1 TABLET BY MOUTH UP TO 3 TIMES PER DAY NEEDED FOR PANIC ATTACKS *ONLY* 3 Active acetaminophen (TYLENOL) 325 mg tablet Take 2 tablets (650 mg total) by mouth every 4 (four) hours as needed. 3 Active ibuprofen (ADVIL,MOTRIN) 200 MG tablet Take 3 tablets (600 mg total) by mouth every 6 (six) hours as needed for pain (specific location in comments). 3 Active Additional Information Patient not taking.Reported on 11/30/2023 bisacodyl (DULCOLAX) 5 mg EC tablet TAKE 4 TABLETS BY MOUTH ONCE DIRECTED 4 Active ciprofloxacin HCl (CIPRO) 500 MG tablet Take 1 tablet by mouth 2 (two) times a day. 4 Active GAVILYTE-G 236-22.74-6.74 -5.86 gram solution MIX AND DIRNK DIRECTED FOR COLON PREP 4 Active penicillin V potassium (VEETIDS) 500 MG tablet TAKE 1 TABLET BY MOUTH TWICE A DAY FOR 10 DAYS, FOR STREP. 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 Isbell who did the biopsy in 2020 for ongoing assessment and management History of abnormal uterine bleeding 11/30/2023 Overview (11/30/2023): S/p endometrial ablation 12/2022 Past 3 months, light monthly spotting or flow x 3 days after 8 months amenorrhea Assessment & Plan (11/30/2023 9:23 AM EDT): Reviewed that this was still be considered an excellent result from the ablation, as amenorrhea is only achieved about 30% of the time. She is quite concerned that this is going to increase to more frequent bleeding and has a strong desire for complete amenorrhea for ever. I reviewed surgical risk for hysterectomy, that the degree of bleeding she is having now may or may not increase in the future. Hysterectomy is an option but she should think about the potential risks versus the amount of bleeding she is having right now. Recommend she return to discuss further if she wants a hysterectomy Primary insomnia 03/25/2021 Assessment & Plan (07/01/2021 4:42 PM EDT): Still has some insomnia but can go back to sleep and she feels it is manageable. Not feeling tired in the daytime. Assessment & Plan (06/18/2021 9:40 PM EDT): Denzel continues to struggle with insomnia. She feels like she is managing however. She will reach out if she wants to talk further about managing. Assessment & Plan (04/24/2021 7:40 PM EDT): Since the last visit Denzel has been able to wean off the Ambien. She tried a course of Zoloft as she was having some nighttime anxiety but that made sleep more disturbed and she requested to go off of it. Her sleep is still disturbed but it is back to her normal. She has trouble falling asleep but is then able to sleep for a few hours and then wakes and is up for the rest of the night. She had not tried Melatonin. She has a paradoxical effect to Benadryl so does not want to try antihistamines and would like to try to avoid other meds at this time. Will try Melatonin. We discussed sleep hygiene and mindfulness techniques to use, recommended avoiding screens before bed or when awake in the middle of the night. Assessment & Plan (03/25/2021 9:53 PM EST): Denzel has been planning to stop Ambien but tried to go without this week and hasn't been able to sleep and has felt anxious at night. Chronic insomnia predating the , has tried many meds and she cannot recal if others worked. Benadryl makes her anxious. Has tried Vistaril and Trazodone but cannot recall if they worked. Has not been feeling anxious in the daytime. We discussed that Ambien can be a challenging med to stop and I recommend a slow titration down. Recommended trying 1/2 tablet or 3/4 tablet tonight and if can sleep,continue for a week and every week try to decreased by 1/2 tablet. If cannot sleep still, she should call and we could try adjunctive med to help with sleep. Will look at alternativ Mild intermittent asthma without complication Overview (01/14/2021): Uses albuterol occasionally. No history of intubations or hospitalizations Assessment & Plan (08/05/2021 4:27 PM EDT): Albuterol prn, avoid the use of hemabate Migraine with aura and witho ut status migrainosus, not intractable 01/14/2021 Overview (01/14/2021): History of migraine with facial paralysis in last Started on magnesium supplementation Assessment & Plan (07/01/2021 4:41 PM EDT): Has had increase in migraines recently with visual aura and has tried sumatriptan. She felt like it made her ARAYA worse and have nausea so Dr Garibay has prescribed Zofran to try with the Sumatriptan. She will continue to work with him. We reviewed to call with persistent visual changes that feel different from migraine aura or with persistent headache Assessment & Plan (06/18/2021 9:47 PM EDT): Saw neurologist for facial numbness and migraines. He recommends sumatriptan on bad days. He also recommends avoiding Tylenol and/or Fioricet overuse. Denzel feels like the headaches have not been bad, just has noticed the facial numbness. Dr Garibay's Full note is in Epic. He references normal MRI and no evidence of stroke or MS Assessment & Plan (04/24/2021 7:37 PM EDT): Neuro consult has been put in, check in with pt at [facility] to check on status Assessment & Plan (03/25/2021 9:54 PM EST): Migraines have improved, just having normal ARAYA right now. Still has a small area of facial numbness. She has an appt with Neuro but it is not until 06/19/21. Will try to see if there are other options for neuro visit. Assessment & Plan (03/11/2021 2:56 PM EST): Continues to have frequent migraine with facial numbness. Had normal MRI this week. Has not heard from neurology about appointment. Will follow up today Assessment & Plan (02/25/2021 4:17 PM EST): Denzel is having frequent migraine including facial paralysis. PCP ordered MRI. She does not have neurologist. Referred to neurology. Used fioricet in last which was helpful. Rx sent. Anxiety 01/14/2021 Overview (04/24/2021): Took lorazepam prior to . Has stopped and is doing ok. Usual symptom is occasional panic attack at night. Discussed starting zoloft with PCP but would like to wait at this time. 03/27/21 - Pt would like to start Zoloft - Rx sent for 2 week supply with titration up to 50 mg. Check in at 2 weeks and see how she is doing 04/23/21 Stopped zoloft due to further sleep disruption. Denies anxiety at this time. Assessment & Plan (07/01/2021 4:42 PM EDT): Anxiety is better than at the beginning of . Doing well Assessment & Plan (04/24/2021 7:40 PM EDT): Started Zoloft since last appt but it felt like it made insomnia worse so she discontinued after we discussed different options. Denzel does not feel like she is having anxiety at this time Resolved Problems Problem Noted Date Diagnosed Date Resolved Date premature rupture of membranes in third trimester 08/05/2021 09/18/2021 Overview (08/05/2021): Will admit to [facility] for induction and GBS prophylaxis, will defer steroids per discussion with Dr. Payne. GBS culture sent. Elevated blood pressure affe cting in third trimester, antepartum 08/05/2021 Overview (08/05/2021): Was normal in office then elevated on admission to [facility], denies sx, will draw labs if elevated BP persists Normal intrauterine , antepartum 08/05/2021 09/18/2021 Request for sterilization 07/16/2021 Assessment & Plan (08/05/2021 4:30 PM EDT): Will proceed PP if no contraindications Assessment & Plan (07/16/2021 9:17 AM EDT): Reviewed option of post vs interval sterilization. Discussed differences in procedures. Reviewed risks including bleeding, infection, and regret. Discussed salpingectomy for small risk reduction in ovarian cancer. Reviewed alternatives including vasectomy and LARC. Denzel is sure in her decision, there are no life circumstances that would change her mind. Private insurance, no [facility] form needed. Planning PP sterilization. Varicose veins during 06/18/2021 09/18/2021 Assessment & Plan (07/01/2021 4:39 PM EDT): Compression stockings prescribed at last visit - check in at [facility] to see if she is using Assessment & Plan (06/18/2021 9:49 PM EDT): C/O large vein in right thigh that is visible and goes from groin past knee. It is painful at times, sometimes with a burning sensation. On exam there is a visible and softly palpable varicose vein. There is no redness, warmth. Legs are equal in size. Rx for full length maternity stockings for compression given. History of MRSA infection 05/31/2021 Overview (08/05/2021): Date of MRSA infection - Reviewed MRSA flag with Denzel- she does remember ever being told she was MRSA positive but agrees with plan for testing Contact Precautions may be discontinued when three sites have tested MRSA negative on three different occasions by one week starting at least 2 weeks after antibiotics have been discontinued, or after consultation with an Infection Prevention Practitioner. A minimum of three body sites (nares must be done and 2 other: site of original positive, axilla and/or groin; 1 swab for both nares, 1 swab for both axilla, etc) must be sampled on each occasion. Order MRSA/MSSA Pre-Op Screen (1 order only/label sites on tubes) MRSA swabs set #1 Date 05/27 Result negative MRSA swabs set #2 Date 06/18/21 Result neg MRSA swabs set #3 Date 07/28/21 result neg If any are positive, pt will need to be on contact precautions during admission. If all 3 are negative, please email to Keara Alas(Solar Development Engineer of Infection Prevention) so she can remove MRSA from the header in Epic - Epic message sent 08/05/21 Assessment & Plan (07/01/2021 4:41 PM EDT): Will do last MRSA swab set at [facility] Assessment & Plan (06/18/2021 9:41 PM EDT): Second set of MRSA swabs collected Assessment & Plan (05/31/2021 9:51 PM EDT): Swabs collected- will repeat at next two visits. Nausea and vomiting 01/26/2021 06/19/19 Assessment & Plan (03/11/2021 2:57 PM EST): Is vomiting occasionally in the mornings but is eating well throughout the day. Well hydrated. Assessment & Plan (01/26/2021 2:41 PM EST): Anticipatory guidance provided regarding nausea and vomiting in . We reviewed that nausea is a common symptom and is self-limited, usually resolving by mid- with or without treatment. We discussed that initial treatment involves reassurance and counseling on dietary and lifestyle changes, including eating consistently every 2-3 hours, bland foods, bogdan tea or chews, gum, acupressure bands. We reviewed realistic expectations, and discussed that interventions may not completely resolve nausea. Tips for Managing Nausea in Early Bogdan maximilian, chews or tea Peppermint tea Eat small frequent meals- graze every 2-3 hours so your stomach is never empty. Avoid large meals. Eat slowly. Keep snacks (crackers, pretzels, nuts) by your bedside- sometimes eating a little bit before getting up will help a lot. Avoid foods that have strong odors. Sucking on a lemon or soboba slice may help. Don't worry about adhering to a balanced diet unless you are diabetic; just eat whatever appeals to you until the nausea goes away. [place] foods often make nausea worse. Acupressure wristbands might help- sold in drug and health food stores. Acupuncture may also be helpful. Try drinking carbonated beverages between meals; wait for 30 minutes after eating to drink liquids. vitamins can make nausea worse; try taking them before bed, and if that doesn't help, stop taking them until your nausea goes away. Discuss with your provider. If you are not taking vitamins you should take one tablet of folic acid daily (0.4 mg which is 400micrograms per day) during the first trimester. Folic acid will not make nausea worse. Try vitamin B6 25mg three times a day can help and it's considered to be safe. Most importantly, nausea is very common . However, if you have severe vomiting and you aren't keeping anything down for 24 hours or more, give us a call and we'll help. She was instructed to call if she has severe N/V, is unable to keep food and fluid down x 24 hours, stops producing urine, feels faint or dizzy, or loses a significant amount of weight. Supervision of other normal , antepartum 01/14/2021 09/18/2021 Overview (07/16/2021): CNM OB-CMI score: 1 [01/14/2021] Rh A+ GC/Chlam Neg PAP 04/23/20 NIL Tdap 07/16/21 Flu * COVID-19 Vaccinated with Moderna, ask about Booster Hgb 11.5 GTT 105 28 wk Repeat RPR neg GBS * PPBC Plans BTL, should meet with MD in third trimester screening neg counsyl Assessment & Plan (08/05/2021 3:11 PM EDT): Denzel comes in today for evaluation of leaking fluid. She had a large amount of mucous discharge last night and then smaller amounts of mucous after that. She did not feel like she was leaking fluid at the time. This morning she felt that discharge was more liquidy and her panty liners have been wet. SSE, positive pool, positive fern. [facility] for PPROM. Assessment & Plan (07/28/2021 3:44 PM EDT): Denzel feel fairly well and denies LOF, bleeding, u/cs. She does have pedal and digital edema, more in the hot weather and when on her feet etc. We reviewed normal blood pressures and strategies for relief. Fetus is active. MRSA cultures taken today. RTO 2 weeks. Assessment & Plan (07/16/2021 9:18 AM EDT): Tdap today. Can add Pepcid for heartburn in addition to PRN Tums. She is noticing hip pops and discomfort - advised this is normal. +FM, no signs of labor. Assessment & Plan (07/01/2021 4:43 PM EDT): Denzel is a 31 y.o. at 30w1d doing well. Denies VB/LOF/Ctxs. + FM. Meeting with Dr Cee next visit to talk about BTL options Assessment & Plan (06/18/2021 9:40 PM EDT): Denzel is a 31 y.o. at 28w2d doing well. Denies VB/LOF/Ctxs. + FM. Normal 28 week labs reviewed. Assessment & Plan (05/31/2021 9:53 PM EDT): Denzel is doing well, here with her . She is feeling movement. Second trimester labs ordered. Return OB in 3-4 weeks. Assessment & Plan (04/24/2021 7:44 PM EDT): Denzel is a 31 y.o. at 20w3d doing well. Denies VB/LOF/Ctxs. + FM. Here after US, prelim report not available at this time. Here with partner. During the visit, her partner brought up that Denzel has been weight conscious and concerned about too much weight gain. Denzel reports that it was really hard to lose the weight after her first baby and this is why she doesn't want to gain too much weight. She denies disordered eating. I reassured her that her weight gain has been very normal and we talked about weight gain in . Denzel was tearful and did not want to talk further about this at this time. I encouraged her to reinitiate the conversation if she was feeling ready/wanting to. Assessment & Plan (03/25/2021 9:49 PM EST): Denzel is a 30 y.o. at 16w1d doing well. Denies VB/LOF/Pain. Here with family. Would like breast pump Rx. Here with partner and kids. Anatomy scan scheduled for 04/23. Denzel is planning BTL at delivery, we discussed the process. Private Insurance does not need MH form. Needs MD visit in third trimester to discuss. Assessment & Plan (03/11/2021 2:59 PM EST): No concerns today. Got normal cfDNA results today. Its a boy! Will order anatomy scan ultrasound today with a CNM visit to follow in 1 month. Assessment & Plan (02/26/2021 12:41 PM EST): Denzel is doing ok. Here with her partner. Normal NT ultrasound this morning. Would like cfDNA as well. States that she checked with insurance and they would cover both tests. She is having a lot of headaches and is not sleeping great but is otherwise ok. Comfort measures reviewed. Assessment & Plan (02/04/2021 1:32 AM EST): Denzel is a 30 y.o. at 7w6d states she feels well today. Denies any concerns at this time. Denies any LOF/Vaginal bleeding/Ucs. -LEROY changed based on US information. -NT ordered for genetic screening -Advised on quickening and what to expect in the upcoming weeks -Review warning signs and when/how to contact midwives -Advised that our OBs review all of our US and may make further recommendations. - labs ordered -Advised on care structure Primary insomnia 01/14/2021 04/23/2021 Overview (01/14/2021): Takes zolpidem. Is aware that it is not recommended close to term. Will need a plan for sleep in the third trimester. Assessment & Plan (03/11/2021 2:58 PM EST): Still not sleeping well. She gets 3-4 hours of sleep in the beginning of the night with ambien but then wakes up and can't go back to sleep. Has tried vistaril and trazadone in the past which did not help. Has paradoxical reaction with benadryl. Assessment & Plan (02/25/2021 4:18 PM EST): Even with ambien is not sleeping well. Discussed sleep hygiene and guided meditation as first line intervention. She will try those things. Will check in with virtual visit in 2 weeks. Breast lump in upper outer quadrant 04/23/2020 01/15/2022 Assessment & Plan (04/23/2020 2:24 PM EDT): Not felt on exam today; refer to general surgery (had normal imaging last year for same) IUD check up 03/06/2020 01/14/2021 Assessment & Plan (03/10/2020 3:25 PM EST): Denzel is a 29 y.o. who presents today w/ complaints of feeling her IUD on her cervix. She states that when she inserts her finger into her vagina she can feel the stem of her IUD on the opening of her cervix. She also reports that her male partner can feel it as well and it feels uncomfortable. -IUD placed on 02/06/20 -History of Expelling an IUD in the past. -Upreg done today it was negative -LMP 02/06/20. Pt has regular sex 3-4 times a week. -IUD visualized about 1cm out of external os of cervix. -IUD removed at this time w/ no discomfort. -Pt advised that women who have expelled an IUD in the past have a 14-31% risk of expelling it again. -Pt chooses not to have another IUD place. States she will go back on the pill. She reports still having 2 packets at home that will last her until she has her annual in april. -Pt advised on the possibility of due to LMP and malpositioned IUD. Pt will take a home test in a week to confirm. -Pt encouraged to use condoms for up to 7 days after initiating OCPs. -RTO for annual IUD (intrauterine device) in place 01/25/2017 02/22/2017 Overview (01/25/2017): Greyson 05/08/12 Assessment & Plan (01/25/2017 4:07 PM EST): IUD appears to be appropriately located on exam today. Encounter for preoperative s creening laboratory testing for COVID-19 virus Abnormal uterine bleeding Encounters Date Type Department Care Team Description 09/14/2024 8:36 AM EDT - 09/14/2024 11:59 PM EDT Hospital Encounter [facility] [address] [place] [id number] Elvia Law PA Discharge Disposition: Home or Self Care 09/14/2024 Transcribe Orders [facility] [address] [place] [id number] Elvia Law PA Need for hepatitis B screening test (Primary Dx); Encounter for special screening examination for infection with predominantly sexual mode of transmission 09/14/2024 Transcribe Orders [facility] [address] [place] [address] Elvia Law PA Need for hepatitis B screening test (Primary Dx); Encounter for special screening examination for infection with predominantly sexual mode of transmission 07/06/2024 1:11 PM EDT - 07/06/2024 11:59 PM EDT Hospital Encounter Non-Invasive Cardiology [address] [place] [id number] Karlo Womack, Discharge Disposition: Home or Self Care 07/04/2024 Transcribe Orders Virtual Department [address] [place] [address] Karlo Womack, Moderate persistent asthma without complication (Primary Dx) 07/03/2024 Procedure Pass Non-Invasive Cardiology [address] [place] [address] from Last 3 Months Immunizations Immunization Administration Dates Next Due COVID-19 (Pre-11/29) Moderna Vaccine, mRNA, PF 0 04/02/2020,03/08/2020 Tdap 07/16/2021,09/23/2010 Family History Medical History Relation Comments CV disease Father Clotting disorder Maternal Cousin Brain cancer Maternal Grandfather Breast cancer Maternal Grandmother recurrance X2 Hypertension Mother Ovarian cancer Paternal Aunt Relation Status Comments Father Alive Maternal Cousin Maternal Grandfather Maternal Grandmother Alive Mother Alive Paternal Aunt Paternal Grandfather Paternal Grandmother Social History Tobacco Use Types Packs/Day Years Used Date Smoking Tobacco: Never Smokeless Tobacco: Never Tobacco Cessation:Counseling Given: Not Answered Alcohol Use Standard Drinks/Week Comments Yes 7 [...] Industry 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 Job 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 Not on file Not on [employer] e Not on file Last Filed Vital Signs Vital Sign Reading Time Taken Comments Blood Pressure 114/64 12/29/2023 2:10 PM EST Pulse 76 12/29/2023 2:10 PM EST Temperature 36.4 C (97.6 F) 12/29/2023 2:10 PM EST Respiratory Rate 11 12/09/2022 12:0 0 PM EDT Oxygen Saturation 99% 12/29/2023 2:10 PM EST Inhaled Oxygen Concentration - - Weight 67.9 kg (149 lb 12.8 oz) 11/30/2023 8:11 AM EDT Height 162.6 cm (5' 4 ) 11/30/2023 8:11 AM EDT Body Mass Index 25.71 11/30/2023 8:11 AM EDT Plan of Treatment Upcoming Encounters Date Type Department Care Team (Late st Contact Info) Description 11/30/2024 9:40 AM EDT Office Visit [facility] [address] [place] [address] Kim Cee MD [address] [facility], [address] [place] [address] [employer] [facility] Maintenance Due Date Last Done Comments DEPRESSION SCREENING 2000 PNEUMOCOCCAL VACCINES (0-49 years) (1 of 2 - PCV) 2007 PAP SMEAR 04/24/2023 04/23/2020, 09/28/2016, 09/20/2016 COVID-19 VACCINE (3 - 2023-2 5 season) 2023 04/02/2020, 03/08/2020 INFLUENZA VACCINE (#1) 2024 SCREENING FOR DIABETES 09/15/2027 , 05/14/2023 Adult Td,Tdap Booster 07/17/2031 07/16/2021 , 09/23/2010 SMOKING STATUS SCREENING (On ce After 26 Yrs) Completed 12/29/2023 HEPATITIS C SCREENING Completed 09/14/2024 , 01/28/2021 HIV ONE-TIME SCREENING (18-6 5 YEARS) Completed 09/14/2024 HEPATITIS A VACCINES Aged Out No long er eligible based on patient's age to complete this topic HIB VACCINES Aged Out No longer eligi ble based on patient's age to complete this topic MENINGOCOCCAL VACCINES (ACWY) Aged Out No longer eligible based on patient's age to complete this topic MENINGOCOCCAL VACCINES (B) Aged Out N o longer eligible based on patient's age to complete this topic Medical Devices Not on file Procedures Procedure Name Priority Date/Time Associated Diagnosis Comments CHLAMYDIA TRACHOMATIS AND NEISSERIA GONORRHOEAE NUCLEIC ACID DETECTION Routine 09/14/2024 8:47 AM EDT Need for hepatitis B screening test Encounter for special screening examination for infection with predominantly sexual mode of transmission SYPHILIS ANTIBODY SCREEN ASSAY Routine 09/14/2024 8:41 AM EDT Need for hepatitis B screening test Encounter for special screening examination for infection with predominantly sexual mode of transmission IRON AND IRON BINDING CAPACITY Routine 09/14/2024 8:41 AM EDT Need for hepatitis B screening test Encounter for special screening examination for infection with predominantly sexual mode of transmission CBC AND DIFFERENTIAL Routine 09/14/2024 8:41 AM EDT Need for hepatitis B screening test Encounter for special screening examination for infection with predominantly sexual mode of transmission FERRITIN Routine 09/14/2024 8:41 AM EDT Need for hepatitis B screening test Encounter for special screening examination for infection with predominantly sexual mode of transmission LIPID PANEL Routine 09/14/2024 8:41 AM EDT Need for hepatitis B screening test Encounter for special screening examination for infection with predominantly sexual mode of transmission COMPREHENSIVE METABOLIC PANEL Routine 09/14/2024 8:41 AM EDT Need for hepatitis B screening test Encounter for special screening examination for infection with predominantly sexual mode of transmission HIV-1/2 ANTIGEN/ANTIBODY Routine 09/14/2024 8:41 AM EDT Need for hepatitis B screening test Encounter for special screening examination for infection with predominantly sexual mode of transmission HEPATITIS B SURFACE ANTIGEN Routine 09/14/2024 8:41 AM EDT Need for hepatitis B screening test Encounter for special screening examination for infection with predominantly sexual mode of transmission HEPATITIS C VIRAL LOAD (PCR) Routine 09/14/2024 8:41 AM EDT Need for hepatitis B screening test Encounter for special screening examination for infection with predominantly sexual mode of transmission MCT (MOBILE CARDIAC TELEMETRY) Routine 07/19/2024 12:13 PM EDT Palpitations PAP TEST Routine 04/23/2020 12:00 AM EDT from Last 3 Months or Most Recently Relevant to Health Maintenance Results * Chlamydia Trachomatis and Neisseria Gonorrhoeae Nucleic Acid Detection (09/14/2024 8:47 AM EDT) CHLAMYDIA TRACHOMATIS Not Detected Not Detected [facility] NEISERIA GONORRHOEAE Not Detected Not Detected [facility] SPECIMEN TYPE URINE [facility] Other (Fluid) 09/14/2024 8:4 7 AM EDT 09/14/2024 8:50 AM EDT us Elvia CHIRINOS NON CULTURE MICROBIOLOGY Fi nal Result [address] [address] * Comprehensive metabolic panel (09/14/2024 8:41 AM EDT) SODIUM 137 133 - 146 mmol/L [facility] POTASSIUM 4.2 3.3 - 5.1 mmol/L [facility] CHLORIDE 102 96 - 108 mmol/L [facility] CO2 22 21 - 35 mmol/L [facility] BUN 14 6 - 19 mg/dL [facility] CREATININE 0.80 0.5 - 1.5 mg/dL [facility] GLUCOSE 83 70 - 99 mg/dL [facility] ALBUMIN 4.6 3.9 - 4.8 g/dL [facility] TOTAL PROTEIN 7.4 6.5 - 8.0 g/dL [facility] CALCIUM 9.5 8.4 - 10.3 mg/dL [facility] ALKALINE PHOSPHATASE 66 39 - 117 U/L [facility] TOTAL BILIRUBIN 0.7 0.0 - 1.2 mg/dL [facility] AST 21 0 - 37 U/L [facility] ALT 14 0 - 40 U/L [facility] GLOBULIN 2.8 1 - 4.8 g/dL [facility] EGFR 98 >59 mL/min/1.7 3m2 [facility] Comment:Estimated glomerular filtration rate calculated using the CKD-EPI refit equation. ANION GAP 17 10 - 20 mmol/L [facility] Blood 09/14/2024 8:41 AM EDT 09/14/2024 8:49 AM EDT Elvia CHIRINOS LAB BLOOD ORDERABLES Final Result [address] [address] * HIV-1/2 antigen/antibody (09/14/2024 8:41 AM EDT) HIV-1/2 Antigen/Antibo dy NON-REACTI VE NON-REACTI VE [facility] Blood 09/14/2024 8:41 AM EDT 09/14/2024 8:50 AM EDT Elvia CHIRINOS LAB BLOOD ORDERABLES Final Result Performing Organization Address [facility] Co de Phone Number [address] [address] * Iron and iron binding capacity (09/14/2024 8:41 AM EDT) IRON 131 30 - 160 ug/dL [facility] IRON BINDING CAPACITY 316 228 - 428 ug/dL [facility] TRANSFERRIN SATURAT. 41 15 - 50 % [facility] Blood 09/14/2024 8:41 AM EDT 09/14/2024 8:49 AM EDT Elvia CHIRINOS LAB BLOOD ORDERABLES Final Result Performing Organization Address [facility]/ZIP Co de Phone Number [address] [address] * Syphilis antibody screen (09/14/2024 8:41 AM EDT) RPR NON-REACTIV E NON-REACTI VE [facility] Blood 09/14/2024 8:41 AM EDT 09/14/2024 8:49 AM EDT Elvia CHIRINOS LAB BLOOD ORDERABLES Final Result Performing Organization Address [facility] Co de Phone Number [address] [address] * Hepatitis C viral load (PCR) (09/14/2024 8:41 AM EDT) [facility] HCV RNA DETECT/QNT Undetected Undetected IU/mL [facility] Comment: (NOTE) Result in log IU/mL is Undetected. ADDITIONAL INFORMATION The quantification range of this assay is 15 to 100,000,000 IU/mL (1.18 log to 8.00 log IU/mL). Testing was performed using the elidia HCV test ([employer] Blood (Blood) 09/14/2024 8:4 1 AM EDT 09/14/2024 8:50 AM EDT Elvia CHIRINOS NON CULTURE MICROBIOLOGY Fi nal Result Performing Organization Address [facility] de Phone Number [facility] [address] [place] [address] * Hepatitis B surface antigen (09/14/2024 8:41 AM EDT) [facility] HBV SURFACE ANTIGEN NON-REACTI VE NON-REACTI VE [facility] Blood 09/14/2024 8:41 AM EDT 09/14/2024 8:49 AM EDT Elvia CHIRINOS LAB BLOOD ORDERABLES Final Result Performing Organization Address [facility] Co de Phone Number [address] [address] * (ABNORMAL) CBC and differential (09/14/2024 8:41 AM EDT) WBC 4.75 4.00 - 11.00 K/uL [facility] RBC 4.04 4.00 - 5.20 M/uL [facility] HGB 12.9 12.0 - 16.0 g/dL [facility] HCT 37.9 36.0 - 46.0 % [facility] PLT 229 150 - 450 K/uL [facility] MCV 93.8 80.0 - 100.0 fL [facility] MCH 31.9(H) 27.0 - 31.0 pg [facility] MCHC 34.0 32.0 - 36.0 g/dL [facility] RDW 12.2 11.5 - 14.5 % [facility] MPV 10.2 8.4 - 12.0 fL [facility] NRBC 0.00 0.00 /100 WBCs [facility] ABSOLUTE NRBC 0.00 0.00 K/uL [facility] DIFF METHOD Auto [facility] NEUTS 56.9 48.0 - 76.0 % [facility] LYMPHS 32.2 18.0 - 41.0 % [facility] MONOS 9.3 4.0 - 11.0 % [facility] EOS 0.8 0.0 - 5.0 % [facility] BASOS 0.4 0.0 - 1.5 % [facility] Granulocytes, immature (%) 0.4 0.0 - 0.9 % [facility] ABSOLUTE NEUTS 2.70 1.92 - 7.60 K/uL [facility] ABSOLUTE LYMPHS 1.53 0.72 - 4.10 K/uL [facility] ABSOLUTE MONOS 0.44 0.16 - 1.10 K/uL [facility] ABSOLUTE EOS 0.04 0.00 - 0.50 K/uL [facility] ABSOLUTE BASOS 0.02 0.00 - 0.15 K/uL [facility] Granulocytes, immature 0.02 0.00 - 0.09 K/uL [facility] Blood 09/14/2024 8:41 AM EDT 09/14/2024 8:49 AM EDT Elvia CHIRINOS LAB BLOOD ORDERABLES Final Result Performing Organization Address City/[facility]/ZIP Co de Phone Number [address] [address] * Ferritin (09/14/2024 8:41 AM EDT) FERRITIN 73 13 - 150 ug/L [facility] Blood 09/14/2024 8:41 AM EDT 09/14/2024 8:49 AM EDT Elvia CHIRINOS LAB BLOOD ORDERABLES Final Result Performing Organization Address [facility] de Phone Number [address] [address] * (ABNORMAL) Lipid panel (09/14/2024 8:41 AM EDT) HDL 69 mg/dL [facility] Comment: Interpretation <40 mg/dL: Low HDL cholesterol (major risk factor for CHD) Greater than or equal to 60 mg/dL: High HDL cholesterol ( negative risk factor for CHD) HDL - cholesterol is affected by a number of factors, e.g. smoking, excerise, hormones, sex and age. CHOLESTEROL 202 0 - 240 mg/dL [facility] TRIGLYCERIDES 63 30 - 160 mg/dL [facility] LDL 120 50 - 129 mg/dL [facility] Comment: LDL levels in terms of risk for coronary heart disease: <100 mg/dL: Optimal 100-129 mg/dL: Near or above optimal 130-159 mg/dL: Borderline high 160-189 mg/dL: High >190 mg/dL: Very High CARDIAC RISK RATIO 2.9(L) 3.3 - 4.4 C [facility] Blood 09/14/2024 8:41 AM EDT 09/14/2024 8:49 AM EDT Elvia CHIRINOS LAB BLOOD ORDERABLES Final Result Performing Organization Address City/[facility] Co de Phone Number [address] [address] * MCT (Mobile Cardiac Telemetry) (07/19/2024 12:13 PM EDT) Anatomical Region Laterality Modality Heart Other Narrative 07/19/2024 3:30 PM EDT Event monitor report Indication palpitations Findings: The underlying rhythm is sinus rhythm average heart rate 73 minimum heart rate 47 maximal heart rate 134. There are frequent PVCs occurring 2.1% of total beats. There are very rare premature atrial contractions. Symptoms seem to correlate with PVCs. Conclusion: Frequent PVCs. us Karlo A Bigda DO CV CARDIAC SERVICES ORDERABLES F inal Result * Pap Smear (04/23/2020 12:00 AM EDT) 04/23/2020 04/24/2020 8:5 0 AM EDT Narrative SEE NARRATIVE - 04/29/2020 9:26 AM EDT [address] [address] Client Service Representative: Jennifer Aparicio MD SMALL STOCK FACER Cytology Report FINAL DIAGNOSIS A. PAP SMEAR (SUREPATH) CE: SPECIMEN ADEQUACY: Satisfactory for evaluation; transformation zone present. INTERPRETATION: NEGATIVE FOR INTRAEPITHELIAL LESION OR MALIGNANCY. Electronically Signed Out By: NICOLE Tidwell(ASCP) The Pap test is a screening test primarily for squamous cancers and precursors and has associated false-negative and false-positive results. New technologies such as liquid-based preparations may decrease but will not eliminate all false-negative results. Regular sampling and follow-up of unexplained clinical signs and symptoms are recommended to minimize false negative results. PROCEDURES/ADDENDA HPV Testing (Requested) Ordered Date: 04/24/2020 A. PAP SMEAR (SUREPATH) CE: Human Papilloma Virus Test Negative for high-risk human papillomavirus types 16, 18, 45 and the Other high risk probe set (Includes 31, 33, 35, 39, 51, 52, 56, 58, 59, 66, 68) by [employer] HR-HPV analysis. Clinical correlation is advised. This HPV test was performed at [facility], [address] [place] [address]. This test has been FDA approved for SurePath cervical cytology specimens. The accuracy and precision of this test for all other specimen sources has been verified in the Cytopathology Laboratory of the [facility] and has not been cleared or approved by the U.S. Food and Drug Administration. Clinical correlation is advised. CLINICAL HISTORY Date of Last Menstrual Period: Not Provided Menstrual History: Unknown Other Clinical Conditions: Screening Pap SPECIMEN SOURCE A: PAP SMEAR (SUREPATH) CE Patient Name: DENZEL PITTS : 1990 (Age: 30) Sex: F Institution: [facility] Location: [facility] Date of Collection: 04/23/2020 Date of Reported: 04/29/2020 09:26 Results to: Tabby Glaser MD Tabby Glaser MD CYTOLOGY ORDERABLES Final Result SEE NARRATIVE from Last 3 Months or Most Recently Relevant to Health Maintenance [place] [address] [place] [address] [facility] Advance Directives For more information, please contact: [phone] (9AM - 5PM [place], Tuesday-Tuesday) Documents on File Type Date Recorded Patient Professional Caster Expl anation Healthcare Proxy 08/06/2021 10:35 AM * Full Code (Latest Code Status on File) Date Activated Date Inactivated Comments 12/09/2022 8:57 AM Question Answer Comments Code Status Confirmed With: Patient * Full Code Date Activated Date Inactivated Comments 10/15/2021 7:04 AM 12/09/2022 8:57 AM Question Answer Comments Code Status Confirmed With: Patient * Full Code Date Activated Date Inactivated Comments 08/05/2021 10:47 PM 10/15/2021 7:04 AM Question Answer Comments Code Status Confirmed With: Patient Care Teams Communications Associate Relationship Specialty Start Date End Date Karlo Womack DO PCP - General Internal Medicine 02/13/19 Karlo Womack DO [address] [place] [address] [email or web address] Insurance Assigned Provider 06/18/23 Additional Source Comments The information contained in this document represents components of the legal health record. It is not the complete legal health record.[facility]
--- OUTSIDE RECORDS SUMMARY | 2024-10-04 13:15 | XMS_ITS | Encounter Summary ---
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 ibis e Not on file documented as of this encounter Plan of Treatment Upcoming Encounters Date Type Department Care Team (Late st Contact Info) Description 11/30/2024 9:40 AM EDT Office Visit [facility] [address] [place] [address] Kim Cee MD [address] [address] documented as of this encounter Visit Diagnoses Not on filedocumented in this encounter Care Teams Arts And Crafts Instructor Relationship Specialty Start Date End Date Karlo Womack DO PCP - General Internal Medicine 02/13/19 Karlo Womack DO [address] [place] [address] Insurance Assigned Provider 06/18/23 documented as of this encounter Additional Source Comments The information contained in this document represents components of the legal health record. It is not the complete legal health record.[facility]
--- OUTSIDE RECORDS SUMMARY | 2024-10-04 13:15 | XMS_ITS | Encounter Summary ---
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 Not on ibis e Not on file documented as of this encounter Plan of Treatment Upcoming Encounters Date Type Department Care Team (Late st Contact Info) Description 11/30/2024 9:40 AM EDT Office Visit [facility] [address] [place] [address] Kim Cee MD [address] [address] documented as of this encounter Visit Diagnoses Not on filedocumented in this encounter Care Teams Game Farm Supervisor Relationship Specialty Start Date End Date Karlo Womack DO PCP - General Internal Medicine 02/13/19 Karlo Womack DO [address] [facility] [place] [address] Insurance Assigned Provider 06/18/23 documented as of this encounter Additional Source Comments The information contained in this document represents components of the legal health record. It is not the complete legal health record.[facility]
--- OUTSIDE RECORDS SUMMARY | 2024-10-04 13:15 | XMS_ITS | Encounter Summary ---
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 Not on file documented as of this encounter Plan of Treatment Upcoming Encounters Date Type Department Care Team (Late st Contact Info) Description 11/30/2024 9:40 AM EDT Office Visit [facility] [address] [place] [address] [place] [address] Kim Cee MD 22 [facility], [address] [place] [address] [email or web address] documented as of this encounter Visit Diagnoses Not on filedocumented in this encounter Additional Health Concerns Infection Onset Date Last Indicated Resolved Time 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 It is not the complete legal health record.[facility]
--- OUTSIDE RECORDS SUMMARY | 2024-10-04 13:15 | XMS_ITS | Encounter Summary ---
Author Organization [facility] Address [address] [employer] [address] Phone Care Team Providers Care Client Service Supervisor Name Role Phone Anthony Roberson Primary Care Provider [phone] Shanta Karlo Noah DO Primary Care Provider [phone] ShantaKarlo DO Unavailable Encounter Details Date Type Department Care Team (Latest Contact Info) Description 11/08/2017 Transcribe Orders [facility] [address] [place] [address] Nikki Wakefield PA-C 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 Not on file documented as of this encounter Plan of Treatment Upcoming Encounters Date Type Department Care Team (Late st Contact Info) Description 11/30/2024 9:40 AM EDT Office Visit [facility] [address] [place] [address] Kim Cee MD 22 [facility], [address] [place] [address] [email or web address] documented as of this encounter Results * (ABNORMAL) Lipid panel (11/08/2017 7:38 AM EDT) HDL 47 mg/dL [facility] Comment: Interpretation: Risk Level Females Decreased >55mg/dL Average 50-55 mg/dL Increased <50 mg/dL CHOLESTEROL 138 0 - 240 mg/dL [facility] TRIGLYCERIDES 32 30 - 160 mg/dL [facility] LDL 85 50 - 129 mg/dL [facility] Comment: LDL levels in terms of risk for coronary heart disease: <100 mg/dL: Optimal 100-129 mg/dL: Near or above optimal 130-159 mg/dL: Borderline high 160-189 mg/dL: High >190 mg/dL: Very High CARDIAC RISK RATIO 2.9(L) 3.3 - 4.4 C [facility] Blood 11/08/2017 7:38 AM EDT 11/08/2017 8:02 AM EDT May Ashu DYER LAB BLOOD ORDERABLES Final R esult [facility] [address] [place] [address] * Comprehensive metabolic panel (11/08/2017 7:38 AM EDT) Pathologist [facility] SODIUM 141 133 - 146 mmol/L [facility] POTASSIUM 4.0 3.3 - 5.1 mmol/L [facility] CHLORIDE 104 96 - 108 mmol/L [facility] CO2 25 21 - 35 mmol/L [facility] BUN 10 6 - 19 mg/dL [facility] CREATININE 0.70 0.5 - 1.5 mg/dL [facility] GLUCOSE 92 70 - 99 mg/dL [facility] ALBUMIN 4.1 3.9 - 4.8 g/dL [facility] TOTAL PROTEIN 6.6 6.5 - 8.0 g/dL [facility] CALCIUM 9.1 8.4 - 10.3 mg/dL [facility] ALKALINE PHOSPHATASE 51 39 - 117 U/L [facility] TOTAL BILIRUBIN 0.5 0.0 - 1.2 mg/dL [facility] AST 16 0 - 37 U/L [facility] ALT 9 0 - 40 U/L [facility] GLOBULIN 2.5 1 - 4.8 g/dL [facility] EGFR 117 >59 mL/min/1.7 3m2 [facility] Comment:If patient is black, multiply result by 1.159. Estimated glomerular filtration rate calculated using the CKD-EPI equation. 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 Infection Utility 01/13/2013 01/13/2013 08/05/2021 9:32 PM E DT documented as of this encounter Care Teams Client Service Supervisor Relationship Specialty Start Date End Date Anthony Roberson DO [address] [place] [address] PCP - General 11/23/16 02/12/19 Karlo Womack DO [address] [place] [address] [email or web address] PCP - General Internal Medicine 02/13/19 Karlo Womack DO [address] [place] [address] (work) [email or web address] Insurance Assigned Provider 06/18/23 documented as of this encounter Additional Source Comments The information contained in this document represents components of the legal health record. It is not the complete legal health record.[facility]
--- OUTSIDE RECORDS SUMMARY | 2024-10-04 13:15 | XMS_ITS | Encounter Summary ---
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 Not on ibis e Not on file documented as of this encounter Plan of Treatment Upcoming Encounters Date Type Department Care Team ([facility] st Contact Info) Description 11/30/2024 9:40 AM EDT Office Visit [facility] [address] [place] [address] Kmi Cee MD [address] [address] documented as of this encounter Visit Diagnoses Not on filedocumented in this encounter Care Teams Affiliate Marketing Specialist Relationship Specialty Start Date End Date Karlo Womack DO PCP - General Internal Medicine 02/13/19 Karlo Womack DO [address] [place] [address] Insurance Assigned Provider 06/18/23 documented as of this encounter Additional Source Comments The information contained in this document represents components of the legal health record. It is not the complete legal health record.[facility]
--- OUTSIDE RECORDS SUMMARY | 2024-10-04 13:15 | XMS_ITS | Encounter Summary ---
Author Organization [facility] Address [address] [address] Phone Care Team Providers Care Registered Private Duty Nurse Name Role Phone Karlo Womack DO Primary Care Provider [phone] Karlo Womack DO Unavailable Encounter Details Date Type Department Care Team (Latest Contact Info) Description 04/10/2019 Transcribe Orders [facility] [address] [place] [address] Nikki Wakefield, GOMEZ 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 Not on ibis e Not on file documented as of this encounter Plan of Treatment Upcoming Encounters Date Type Department Care Team (Late st Contact Info) Description 11/30/2024 9:40 AM EDT Office Visit [facility] [address] [place] [address] [place] [address] Kim Cee MD [address] [facility], [address] [place] [address] [email or web address] documented as of this encounter Results * TSH with reflex (04/10/2019 3:23 PM EST) TSH 1.49 0.27 - 4.20 uIU/mL [facility] Blood 04/10/2019 3:23 PM EST 04/10/2019 3:26 PM EST May Ashu DYER LAB BLOOD ORDERABLES Final R esult [facility] [address] [place] [address] * Thyroglobulin antibody (04/10/2019 3:23 PM EST) THYROGLOBULIN ANTIBODY, S <1.8 <4.0 IU/mL [facility] Comment: (NOTE) ADDITIONAL INFORMATION The thyroglobulin antibody testing method is an immunoenzymatic assay manufactured by [employer] and performed on the AC Immune SA DXI 800. Values obtained from different assay methods or kits may be different and cannot be used interchangeably. The results cannot be interpreted as absolute evidence for the presence or absence of malignant disease. Blood 04/10/2019 3:23 PM EST 04/10/2019 3:26 PM EST May Ashu DYER LAB BLOOD ORDERABLES Final R esult [facility] [address] [place] [address] * Thyroperoxidase (TPO) antibodies (04/10/2019 3:23 PM EST) THYROPEROXIDASE AB, S 0.6 <9.0 IU/mL [facility] Blood 04/10/2019 3:23 PM EST 04/10/2019 3:26 PM EST us May Ashu DYER LAB BLOOD ORDERABLES Final R esult [facility] [address] [place] [address] * Comprehensive metabolic panel (04/10/2019 3:23 PM EST) SODIUM 140 133 - 146 mmol/L [facility] POTASSIUM 3.3 3.3 - 5.1 mmol/L [facility] CHLORIDE 104 96 - 108 mmol/L [facility] CO2 25 21 - 35 mmol/L [facility] BUN 10 6 - 19 mg/dL [facility] CREATININE 0.80 0.5 - 1.5 mg/dL [facility] GLUCOSE 73 70 - 99 mg/dL [facility] ALBUMIN 4.6 3.9 - 4.8 g/dL [facility] TOTAL PROTEIN 7.2 6.5 - 8.0 g/dL [facility] CALCIUM 9.4 8.4 - 10.3 mg/dL [facility] ALKALINE PHOSPHATASE 53 39 - 117 U/L [facility] TOTAL BILIRUBIN 0.4 0.0 - 1.2 mg/dL [facility] AST 16 0 - 37 U/L [facility] ALT 11 0 - 40 U/L [facility] GLOBULIN 2.6 1 - 4.8 g/dL [facility] EGFR 98 >59 mL/min/1.7 3m2 [facility] Comment:If patient is black, multiply result by 1.159. Estimated glomerular filtration rate calculated using the CKD-EPI equation. ANION GAP 14 10 - 20 mmol/L [facility] Blood 04/10/2019 3:23 PM EST 04/10/2019 3:26 PM EST May Ashu DYER LAB BLOOD ORDERABLES Final R esult [address] [address] * CBC and differential (04/10/2019 3:23 PM EST) WBC 5.28 4.00 - 11.00 K/uL [facility] Comment:Note Reference Range updates to all CBC and Differential results. RBC 3.78 3.72 - 5.30 M/uL [facility] HGB 12.3 10.6 - 15.5 g/dL [facility] Comment:Note updated Referen ce Ranges for all CBC and Differential results. HCT 36.3 32.0 - 45.0 % [facility] PLT 213 140 - 430 K/uL [facility] MCV 96.0 78.0 - 97.0 fL [facility] MCH 32.5 25.0 - 33.0 pg [facility] MCHC 33.9 32.0 - 36.0 g/dL [facility] RDW 12.1 11.0 - 16.0 % [facility] MPV 10.5 8.4 - 12.8 fl [facility] NRBC 0.00 0 /100 WBCs [facility] ABSOLUTE NRBC 0.00 0 K/uL [facility] DIFF METHOD Auto [facility] NEUTS 60.5 43.0 - 75.0 % [facility] LYMPHS 27.8 18.2 - 47.4 % [facility] MONOS 9.8 4.00 - 11.00 % [facility] EOS 1.1 0.0 - 8.0 % [facility] BASOS 0.6 0.0 - 2.0 % [facility] Granulocytes, immature (%) 0.2 0.0 - 0.9 % [facility] ABSOLUTE NEUTS 3.19 1.80 - 7.70 K/uL [facility] ABSOLUTE LYMPHS 1.47 1.00 - 3.10 K/uL [facility] ABSOLUTE MONOS 0.52 0.20 - 0.80 K/uL [facility] ABSOLUTE EOS 0.06 0.00 - 0.80 K/uL [facility] ABSOLUTE BASOS 0.03 0.00 - 0.09 K/uL [facility] Granulocytes, immature 0.01 0.00 - 0.05 K/uL [facility] Blood 04/10/2019 3:23 PM EST 04/10/2019 3:26 PM EST May Ashu DYER LAB BLOOD ORDERABLES Final R esult [facility] [address] [place] [address] documented in this encounter Visit Diagnoses Diagnosis Dizziness and giddiness- Primary Enlargement of thyroid Goiter, unspecified documented in this encounter Additional Health Concerns Infection Onset Date Last Indicated Resolved Time MRSA Comment: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 It is not the complete legal health record.[facility]
--- OUTSIDE RECORDS SUMMARY | 2024-10-04 13:15 | XMS_ITS | Encounter Summary ---
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 file Not on ibis e Not on file documented as of this encounter Plan of Treatment Upcoming Encounters Date Type Department Care Team (Late st Contact Info) Description 11/30/2024 9:40 AM EDT Office Visit [facility] [address] [place] [address] [place] [address] Kim Cee MD [address] [facility], [address] [place] [address] [email or web address] documented as of this encounter Visit Diagnoses Not on filedocumented in this encounter Additional Health Concerns Infection Onset Date Last Indicated Resolved Time MRSA Comment:Infection 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 It is not the complete legal health record.[facility]
[2024-10-04 13:24] VITALS: PULSE 76; O2SAT 100
== END 2024-10-04 12:34 | disposition home or self-care (01) ==
LOC: HO.RESP 12:33
PROVIDERS: PCP Internal Medicine; Visit Provider Internal Medicine
DX: J45.40 Moderate persistent asthma, uncomplicated (principal)
CPT/HCPCS: 94010; 94640; 94727; 94729

== ENCOUNTER → 2024-10-04 12:55 | Outpatient (BNV) | payer BC, SELFPAY | PROVIDERS: PCP Internal Medicine; Visit Provider Internal Medicine Pulmonary Disease | DX: R06.00 Dyspnea, unspecified (principal) | CPT/HCPCS: 94060; 94727; 94729 ==

== ENCOUNTER 2025-01-11 08:17 | Outpatient (REF) | payer BC, SELFPAY ==
--- NOTE | ~2025-01-11 | XR_ITS ---
EXAMINATION: XR KNEE 3 VIEWS RIGHT HISTORY: M25.569 - Pain in unspecified knee COMPARISON: Comparison is made with the prior examination dated 01/14/2022. FINDINGS: Standing AP views of both knees and additional lateral and sunrise patellar views of the right knee are submitted. Osseous mineralization is normal. There is no fracture or dislocation. There is mild narrowing of the medial and lateral compartments of the right knee. The soft tissues are unremarkable. There is no joint effusion. XR/XR knee RT 3V IMPRESSION: Mild narrowing of the medial and lateral compartments of the right knee. Electronically signed by: Rodríguez Lunsford MD 01/11/2025 01:39 PM EST
== END 2025-01-11 08:18 | disposition home or self-care (01) ==
LOC: HO.HOSX 08:17
PROVIDERS: Visit Provider Physician Assistant
DX: M17.11 Unilateral primary osteoarthritis, right knee (principal); M25.361 Other instability, right knee
CPT/HCPCS: 73562

== ENCOUNTER 2025-01-11 13:10 | Outpatient (AMB) | payer BC, SELFPAY ==
--- NOTE | 2025-01-11 13:14 | MHC.OFFVIS ---
Intake Visit Reasons: OV- Right knee pain, last inj 02/17/24 Intake Note: Faye is a 34 year old female who presents today for a follow up of her right knee OA, last inj 02/17/24. Patient reports that the right knee pain has increased since last visit. She states that due to the pain she went to [facility] in [facility] for a cortisone injection back in 09/30/24. She reports that about a two months ago she had a fall and another fall last month, she did not seek treatment. Patient states that she would like to discuss what her other options other than cortisone injections. Patient added that she would like to discuss gel injections, physical therapy or surgery. Allergies adhesive Allergy (Intermediate, Verified 02/17/24 13:22) blisters sulfamethoxazole (From Bactrim) Allergy (Intermediate, Verified 02/17/24 13:22) HIVES Sulfa (Sulfonamide Antibiotics) Allergy (Unknown, Verified 02/17/24 13:22) Hives shellfish derived Allergy (Verified 02/17/24 13:22) Hives HPI HPI OV- Right knee pain, last inj 02/17/24: Details: Ms. Lawrence is a 34-year-old female who presents to the office today with chronic right knee pain. She reports that she has had 4 surgeries on the right knee in the past. 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 She received a cortisone injection from our office on 02/17/2024 and a 2nd cortisone injection from a walk-in clinic in September 2024. She reports that the most recent cortisone injection only gave her a few days of relief. Additionally, she reports episodes of instability and giving out in the right knee. She is looking to discuss other treatment options at this time. [facility] Medical History Asthma History of disruption of medial collateral ligament History of renal calculi Hypercalciuria Hypocitraturia Melanoma in situ Osteoarthritis of right knee Surgical History History of arthroscopy of right knee History of cystoscopy History of repair of ACL Family History Mother No problems noted. Father No problems noted. Son No problems noted. Sister No problems noted. Brother No problems noted. Social History Alcohol intake: current Comment: PATIENT HAVING KNEE ATHROSCOPY. 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 No ecchymosis, erythema, or joint effusion. No tenderness to palpation to the medial or lateral joint lines. Crepitus felt with ROM. Full knee extension and flexion. NVI. Assessment & Plan Assessment & Plan (1) Instability of right knee joint: Code(s): M25.361 - Other instability, right knee Category: Medical (2) Osteoarthritis of right knee: Code(s): M17.11 - Unilateral primary osteoarthritis, right knee Category: Medical Qualifiers: Osteoarthritis type: unspecified Qualified Code(s): M17.11 - Unilateral primary osteoarthritis, right knee Plan Ms. Lawrence is a 34-year-old female who presents to the office today with chronic right knee pain. She reports that she has had 4 surgeries on the right knee in the past. 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 She received a cortisone injection from our office on 02/17/2024 and a 2nd cortisone injection from a walk-in clinic in September 2024. She reports that the most recent cortisone injection only gave her a few days of relief. Additionally, she reports episodes of instability and giving out in the right knee. She is looking to discuss other treatment options at this time. While in the office today, we discussed the role of gel injections in which the patient is amenable to try. Additionally, she has noticed an increase in right knee instability and is unable to go down the stairs without extreme caution. I have ordered an MRI to evaluate the integrity of the right knee and surrounding structures. She will follow up after the MRIs obtained and gel injection approval is obtained, sooner if needed. X-rays of the Right knee which were obtained while in the office today and were reviewed by me, Viktoria Mariscal PA-C, revealed posttraumatic arthritis. Orders: Orders MR knee RT wo con Today M17.11 - Unilateral primary osteoarthritis, right knee, M25.361 - Other instability, right knee XR knee RT 3V Today M25.569 - Pain in unspecified knee Coding Level of Care Code Est Pt Level 3 (03885) Complex visit Add On G2211 Diagnoses Instability of right knee joint M25.361 Osteoarthritis of right knee, unspecified osteoarthritis type M17.11 Osteoarthritis type: unspecified
--- OUTSIDE RECORDS SUMMARY | 2025-01-11 17:18 | XMS_ITS | Encounter Summary ---
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 It is not the complete legal health record.[facility]
--- OUTSIDE RECORDS SUMMARY | 2025-01-11 17:18 | XMS_ITS | Encounter Summary ---
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 It is not the complete legal health record.[facility]
--- OUTSIDE RECORDS SUMMARY | 2025-01-11 17:18 | XMS_ITS | Encounter Summary ---
Author Organization [facility] Address [address] [address] Phone Care Team Providers Care Intelligence Agent Name Role Phone Anthony Roberson Primary Care Provider [phone] Shanta Karlo Zamora DO Primary Care Provider [phone] ShantaKarlo DO Unavailable Encounter Details Date Type Department Care Team (Latest Contact Info) Description 11/08/2017 Transcribe Orders [address] [address] Nikki Wakefield PA-C 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 Not on ibis e Not on file documented as of this encounter Plan of Treatment Not on file documented as of this encounter Results * (ABNORMAL) Lipid panel (11/08/2017 7:38 AM EDT) HDL 47 mg/dL [facility] Comment: Interpretation: Risk Level Females Decreased >55mg/dL Average 50-55 mg/dL Increased <50 mg/dL CHOLESTEROL 138 0 - 240 mg/dL [facility] TRIGLYCERIDES 32 30 - 160 mg/dL [facility] LDL 85 50 - 129 mg/dL [facility] Comment: LDL levels in terms of risk for coronary heart disease: <100 mg/dL: Optimal 100-129 mg/dL: Near or above optimal 130-159 mg/dL: Borderline high 160-189 mg/dL: High >190 mg/dL: Very High CARDIAC RISK RATIO 2.9(L) 3.3 - 4.4 [facility] Blood 11/08/2017 7:38 AM EDT 11/08/2017 8:02 AM EDT May Ashu DYER LAB BLOOD BKR ORDERABLES Fin al Result [address] [address] * Comprehensive metabolic panel (11/08/2017 7:38 AM EDT) Pathologist [facility] SODIUM 141 133 - 146 mmol/L [facility] POTASSIUM 4.0 3.3 - 5.1 mmol/L [facility] CHLORIDE 104 96 - 108 mmol/L [facility] CO2 25 21 - 35 mmol/L [facility] BUN 10 6 - 19 mg/dL [facility] CREATININE 0.70 0.5 - 1.5 mg/dL [facility] GLUCOSE 92 70 - 99 mg/dL [facility] ALBUMIN 4.1 3.9 - 4.8 g/dL [facility] TOTAL PROTEIN 6.6 6.5 - 8.0 g/dL [facility] CALCIUM 9.1 8.4 - 10.3 mg/dL [facility] ALKALINE PHOSPHATASE 51 39 - 117 U/L [facility] TOTAL BILIRUBIN 0.5 0.0 - 1.2 mg/dL [facility] AST 16 0 - 37 U/L [facility] ALT 9 0 - 40 U/L [facility] GLOBULIN 2.5 1 - 4.8 g/dL [facility] EGFR 117 >59 mL/min/1.7 3m2 [facility] Comment:If patient is black, multiply result by 1.159. Estimated glomerular filtration rate calculated using the CKD-EPI equation. 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 It is not the complete legal health record.[facility]
--- OUTSIDE RECORDS SUMMARY | 2025-01-11 17:18 | XMS_ITS | Encounter Summary ---
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 It is not the complete legal health record.[facility]
--- OUTSIDE RECORDS SUMMARY | 2025-01-11 17:18 | XMS_ITS | Encounter Summary ---
Author Organization [facility] Address [address] [address] Phone Care Team Providers Care Qa Reviewer Name Role Phone Karlo Womack DO Primary Care Provider [phone] Karlo Womack DO Unavailable Encounter Details Date Type Department Care Team (Latest Contact Info) Description 04/10/2019 Transcribe Orders [facility] Phleb Main [address] [place] [address] Ashu May, GOMEZ 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 Not on ibis e Not on file documented as of this encounter Plan of Treatment Not on file documented as of this encounter Results * TSH with reflex (04/10/2019 3:23 PM EST) TSH 1.49 0.27 - 4.20 uIU/mL [facility] Blood 04/10/2019 3:23 PM EST 04/10/2019 3:26 PM EST [facility] LAB BLOOD BKR ORDERABLES Fin al Result Performing Organization Address City/[facility] Co de Phone Number [address] [address] * Thyroglobulin antibody (04/10/2019 3:23 PM EST) THYROGLOBULIN ANTIBODY, S <1.8 <4.0 IU/mL [facility] MED[facility] Comment: (NOTE) ADDITIONAL INFORMATION The thyroglobulin antibody testing method is an immunoenzymatic assay manufactured by [employer] and performed on the [employer] DXI 800. Values obtained from different assay methods or kits may be different and cannot be used interchangeably. The results cannot be interpreted as absolute evidence for the presence or absence of malignant disease. Blood 04/10/2019 3:23 PM EST 04/10/2019 3:26 PM EST [facility] LAB BLOOD ORDERABLES Final R esult Performing Organization Address [facility] de Phone Number [facility] MED[facility] [address] [place] [address] * Thyroperoxidase (TPO) antibodies (04/10/2019 3:23 PM EST) THYROPEROXIDASE AB, S 0.6 <9.0 IU/mL [facility] Blood 04/10/2019 3:23 PM EST 04/10/2019 3:26 PM EST [facility] LAB BLOOD BKR ORDERABLES Fin al Result Performing Organization Address City/[facility] Co de Phone Number [facility] [address] [place] [address] * Comprehensive metabolic panel (04/10/2019 3:23 PM EST) SODIUM 140 133 - 146 mmol/L [facility] POTASSIUM 3.3 3.3 - 5.1 mmol/L [facility] CHLORIDE 104 96 - 108 mmol/L [facility] CO2 25 21 - 35 mmol/L [facility] BUN 10 6 - 19 mg/dL [facility] CREATININE 0.80 0.5 - 1.5 mg/dL [facility] GLUCOSE 73 70 - 99 mg/dL [facility] ALBUMIN 4.6 3.9 - 4.8 g/dL [facility] TOTAL PROTEIN 7.2 6.5 - 8.0 g/dL [facility] CALCIUM 9.4 8.4 - 10.3 mg/dL [facility] ALKALINE PHOSPHATASE 53 39 - 117 U/L [facility] TOTAL BILIRUBIN 0.4 0.0 - 1.2 mg/dL [facility] AST 16 0 - 37 U/L [facility] ALT 11 0 - 40 U/L [facility] GLOBULIN 2.6 1 - 4.8 g/dL [facility] EGFR 98 >59 mL/min/1.7 3m2 [facility] Comment:If patient is black, multiply result by 1.159. Estimated glomerular filtration rate calculated using the CKD-EPI equation. ANION GAP 14 10 - 20 mmol/L [facility] Blood 04/10/2019 3:23 PM EST 04/10/2019 3:26 PM EST May Ashu DYER LAB BLOOD BKR ORDERABLES Fin al Result [facility] [address] [place] [address] * CBC and differential (04/10/2019 3:23 PM EST) WBC 5.28 4.00 - 11.00 K/uL [facility] Comment:Note Reference Range updates to all CBC and Differential results. RBC 3.78 3.72 - 5.30 M/uL [facility] HGB 12.3 10.6 - 15.5 g/dL [facility] Comment:Note updated Referen ce Ranges for all CBC and Differential results. HCT 36.3 32.0 - 45.0 % [facility] PLT 213 140 - 430 K/uL [facility] MCV 96.0 78.0 - 97.0 fL [facility] MCH 32.5 25.0 - 33.0 pg [facility] MCHC 33.9 32.0 - 36.0 g/dL [facility] RDW 12.1 11.0 - 16.0 % [facility] MPV 10.5 8.4 - 12.8 fl [facility] NRBC 0.00 0 /100 WBCs [facility] ABSOLUTE NRBC 0.00 0 K/uL [facility] DIFF METHOD Auto [facility] NEUTS 60.5 43.0 - 75.0 % [facility] LYMPHS 27.8 18.2 - 47.4 % [facility] MONOS 9.8 4.00 - 11.00 % [facility] EOS 1.1 0.0 - 8.0 % [facility] BASOS 0.6 0.0 - 2.0 % [facility] Granulocytes, immature (%) 0.2 0.0 - 0.9 % [facility] ABSOLUTE NEUTS 3.19 1.80 - 7.70 K/uL [facility] ABSOLUTE LYMPHS 1.47 1.00 - 3.10 K/uL [facility] ABSOLUTE MONOS 0.52 0.20 - 0.80 K/uL [facility] ABSOLUTE EOS 0.06 0.00 - 0.80 K/uL [facility] ABSOLUTE BASOS 0.03 0.00 - 0.09 K/uL [facility] Granulocytes, immature 0.01 0.00 - 0.05 K/uL [facility] Blood 04/10/2019 3:23 PM EST 04/10/2019 3:26 PM EST May Ashu DYER LAB BLOOD BKR ORDERABLES Fin al Result [address] [address] documented in this encounter Visit Diagnoses Diagnosis Dizziness and giddiness- Primary Enlargement of thyroid Goiter, unspecified documented in this encounter Additional Health Concerns Infection Onset Date Last Indicated Resolved Time MRSA Comment:Infection 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 It is not the complete legal health record.[facility]
--- OUTSIDE RECORDS SUMMARY | 2025-01-11 17:18 | XMS_ITS | Encounter Summary ---
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 It is not the complete legal health record.[facility]
--- OUTSIDE RECORDS SUMMARY | 2025-01-11 17:18 | XMS_ITS | Encounter Summary ---
Author Organization [facility] Address [address] [employer] 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 Not on ibis e Not on file documented as of this encounter Plan of Treatment Not on file documented as of this encounter Visit Diagnoses Not on filedocumented in this encounter Care Teams Student Development Specialist Relationship Specialty Start Date End Date Karlo Womack DO [email or web address] PCP - General Internal Medicine 02/13/19 Karlo Womack DO [address] [place] [id number] [email or web address] Insurance Assigned Provider 06/18/23 documented as of this encounter Additional Source Comments The information contained in this document represents components of the legal health record. It is not the complete legal health record.[facility]
--- OUTSIDE RECORDS SUMMARY | 2025-01-11 17:18 | XMS_ITS | Encounter Summary ---
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 It is not the complete legal health record.[facility]
--- OUTSIDE RECORDS SUMMARY | 2025-01-11 17:18 | XMS_ITS | Encounter Summary ---
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 Not on ibis e Not on file documented as of this encounter Plan of Treatment Not on file documented as of this encounter Visit Diagnoses Not on filedocumented in this encounter Care Teams Solar Fabrication Technician Relationship Specialty Start Date End Date Karlo Womack DO [email or web address] PCP - General Internal Medicine 02/13/19 Karlo Womack DO [address] [place] [address] [email or web address] Insurance Assigned Provider 06/18/23 documented as of this encounter Additional Source Comments The information contained in this document represents components of the legal health record. It is not the complete legal health record.[facility]
--- OUTSIDE RECORDS SUMMARY | 2025-01-11 17:18 | XMS_ITS | Encounter Summary ---
Author Organization [facility] Address [address] [address] Phone Care Team Providers Care Delivery Truck Driver Heavy Name Role Phone Karlo Womack DO Primary Care Provider [phone] Karlo Womack DO Unavailable Encounter Details Date Type Department Care Team (Latest Contact Info) Description 04/11/2019 Transcribe Orders Virtual Department [address] [place] [address] Ashu Nikki, GOMEZ 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 Not on ibis e Not on file documented as of this encounter Plan of Treatment Not on file documented as of this encounter Results * Holter Monitor 24 Hours (04/19/2019 4:04 PM EDT) Total Beats 100,414 [facility] Ventricular Ectopy Total Beats 0 [facility] Ventricular Ectopy Single Beats 0 [facility] Ventricular Pair 0 [facility] Ventricular Runs 0 [facility] Supraventricular Total Beats 10 [facility] Supraventricular Ectopic Single Beats 10 [facility] Supraventricular Runs 0 [facility] Mean Heart Rate 76 BPM [facility] Maximum Heart Rate 113 BPM [facility] Minimum Heart Rate 53 BPM [facility] Longest RR 1.387 S [facility] Anatomical Region Laterality Modality Heart Other 04/18/2019 2:33 PM EDT 04/19/2019 4:04 PM EDT Narrative 04/19/2019 4:11 PM EDT Type of Study: Holter Duration: 24 hours Mean HR: 76 bpm Max HR: 113 bpm Min HR: 53 bpm SVT/ AF/ Aflutter: None Pause: None PACs: Less than 1% burden. Total of 10 beats. PVCs: none Ventricular arrhythmia: None Heart Block: None Normal Holter monitor. Episodes of heart racing, lightheadedness, palpitations, dizziness, shortness of breath, headache, shortness of breath were associated with normal sinus rhythm. Patient's episode of bradycardia, only happen at night. Asymptomatic. Holter Monitor Main Form Hookup date: 04/18/2019 Scan date: 04/19/2019 Mean HR: 76 bpm Max HR: 113 bpm Min HR: 53 bpm Ventricular ectopic beats - total: 0 Ventricular ectopic beats - singles: 0 Ventricular ectopic beats - pairs: 0 Ventricular ectopic beats - runs: 0 Supraventricular ectopic beats - total: 10 Supraventricular ectopic beats - singles: 10 Supraventricular ectopic beats - runs: 0 Longest R-R interval1.387 sec us Nikki Wakefield PA-C [facility] ORDERABL ES Final Result * US Thyroid Gland (04/18/2019 2:21 PM EDT) Anatomical Region Laterality Modality Neck, Head, Chest Ultrasound 04/18/2019 2:29 PM EDT Impressions 04/18/2019 2:30 PM EDT Normal thyroid ultrasound POS [id number] Narrative 04/18/2019 2:30 PM EDT No comparison The thyroid is not enlarged. Right lobe 4.8 x 1.2 x 1.5 cm. Left lobe 4.1 x 1.1 x 1.4 cm. Isthmus 3 mm. The gland is very homogeneous in echotexture. No focal nodules on either side. Normal blood flow throughout the gland on color Doppler imaging. Procedure Note Augustin Cooney MD - 04/18/2019 No comparison The thyroid is not enlarged. Right lobe 4.8 x 1.2 x 1.5 cm. Left lobe 4.1 x 1.1 x 1.4 cm. Isthmus 3 mm. The gland is very homogeneous in echotexture. No focal nodules on either side. Normal blood flow throughout the gland on color Doppler imaging. 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 It is not the complete legal health record.[facility]
--- OUTSIDE RECORDS SUMMARY | 2025-01-11 17:18 | XMS_ITS | Encounter Summary ---
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 It is not the complete legal health record.[facility]
--- OUTSIDE RECORDS SUMMARY | 2025-01-11 17:18 | XMS_ITS | Encounter Summary ---
Author Organization [facility] Address [address] [address] Phone Care Team Providers Care Manager Telemetry Name Role Phone Karlo Womack DO Primary Care Provider [phone] DiandraKarlo dickson Unavailable Reason for Referral * MRI/CAT Scan - Closed Specialty Diagnoses / Procedures Referred By Cj fraga Referred To Contact Radiology Diagnoses Migraine without status migrainosus, not intractable, unspecified migraine type Procedures MRI Brain CHG MRI BRAIN Elvia Law PA Phone: tel: fax: Referral ID Status Reason Start Date Expiration Date Visits Re quested Visits Authorized [id number] Closed 02/17/2021 08/16/2021 1 1 Encounter Details Date Type Department Care Team (Latest Contact Info) Description 02/17/2021 Transcribe Orders Virtual Department [address] [place] [address] Elvia Law PA [address] [place] [address] [place] [address] Migraine without status migrainosus, not intractable, unspecified [...] 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 [...] flow-voids in the major vessels of the [place] and thedural venous sinuses. No [...] documented as of this encounter Care Teams Manager Telemetry Relationship Specialty Start Date End Date Karlo Womack DO PCP - General Internal Medicine 02/13/19 Karlo Womack DO [address] [place] [address] [email or web address] Insurance Assigned Provider 06/18/23 documented as of this encounter Additional Source Comments The information contained in this document represents components of the legal health record. It is not the complete legal health record.[facility]
--- OUTSIDE RECORDS SUMMARY | 2025-01-11 17:21 | XMS_ITS | Encounter Summary ---
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 It is not the complete legal health record.[facility]
== END 2025-01-11 14:36 | disposition home or self-care (01) ==
LOC: HO.HOS 13:10
PROVIDERS: PCP Internal Medicine; Visit Provider Physician Assistant
DX: M25.361 Other instability, right knee (principal); M17.11 Unilateral primary osteoarthritis, right knee
CPT/HCPCS: 99213

== ENCOUNTER → 2025-01-11 13:19 | Outpatient (BNV) | payer BC, SELFPAY | PROVIDERS: Visit Provider Radiology Diagnostic Radiology | DX: M17.11 Unilateral primary osteoarthritis, right knee (principal) | CPT/HCPCS: 73562 ==